=== PATIENT | male | born 1995 | race Caucasian/White ===

== ENCOUNTER 2017-09-04 22:26 | Observation (INO) | payer OTHER ==
[~2017-09-04] VITALS: Ht 188 cm; Wt 95.4 kg
--- OUTSIDE RECORDS SUMMARY | 2017-09-04 22:31 | XMS REPORT | Continuity of Care Document ---
Author Author [employer] Organization [employer] Address Unknown Phone Unavailable Care Team Providers Care Finish Patcher Name Role Phone [employer] Unavailable Unavailable Problems Problem Status Onset Date Classification Date Reported Comments Source Drug overdose (disorder) Diagnosis 02/18/2017 [facility] Poisoning by drug AND/OR medicinal substance (disorder) 01/31/2017 Diagnosis 02/04/2017 [facility] Intentional drug overdose (disorder) 01/31/2016 Diagnosis 02/04/2016 [facility] Intentional drug overdose (disorder) Active Problem 02/18 [facility] Drug overdose (disorder) Active Problem 02/18/2017 [facility] Medications Medication Details Route Status Patient Instructions Ordering Provider Order Date Source No Known Medications No known medications Active [facility] Allergies, Adverse Reactions, Alerts Immunizations Immunization Date Given Site Status Last Updated Comments Source influenza virus vaccine 02/14/2017 [facility] influenza virus vaccine [facility] influenza virus vaccine 01/31/2017 [facility] influenza virus vaccine<sup>1</sup > [place] Early/Late Reason: Nursing Judgment [facility] pneumococcal polysaccharide PPV23 01/31/2016 [facility] pneumococcal 23-valent vaccine [facility] influenza virus vaccine 01/31/2016 Right [facility]to[facility] influenza virus vaccine [facility] Results Vital Signs Encounters Location Location Details Encounter Type Encounter Number Reason For Visit Attending Provider ADM Date DC Date Status Source [facility] [id number] Emergency [id number] Jigar Stantonters 01/30/2016 01/30/2016 Active [facility] [id number] Inpatient [id number] Jerel Bartholomew 01/30/201603/2016 Active [facility] [id number] Inpatient [id number] Winnie Daniel 01/30/2017 01/31/2017 Active [facility], [facility]. [facility] [id number] Inpatient [id number] Terese Caraballo 02/14/2017 Active [facility], [facility]. Procedures Procedure Code Date Perfomer Comments Source No data available for this section [facility], [facility]. Plan of Care Social History Assessment and Plan Family History Value Date Source Advance Directives Order Name Results Value Date Source
--- OUTSIDE RECORDS SUMMARY | 2017-09-04 22:33 | XMS REPORT ---
Author [facility] Address Unknown Phone Unavailable Care Team Providers Care Steeler Name Role Phone No Family Physician, . PCP Unavailable Encounter [facility] [id number] Date(s): 02/14/17 - [facility]14/[facility] [address] [address] Discharge Disposition: Home Attending Physician: Terese Caraballo DO Admitting Physician: Terese Caraballo DO Referring Physician: No Family Physician, . Non-Staff Vital Signs No data available for this section Problem List Condition Effective Dates Status Health Status Informant Intentional drug Active overdose(Confirmed) Drug Active overdose(Confirmed) Diagnosis Diagnosis Type Effective Dates Health Status Clinical Service Informant Drug overdose Discharge 02/14/17 Non-Specified Diagnosis Allergies, Adverse Reactions, Alerts No Known Allergies Medications No Known Medications Results No data available for this section Immunizations Given and Recorded Vaccine Date Status Refusal Reason influenza virus vaccine 02/14/17 Given influenza virus vaccine1 01/31/17 Given influenza virus vaccine 01/31/16 Given pneumococcal 23-valent vaccine 01/31/16 Given 1Early/Late Reason: Nursing Judgment Procedures No data available for this section Social History No data available for this section Assessment and Plan No data available for this section
--- OUTSIDE RECORDS SUMMARY | 2017-09-04 22:33 | XMS REPORT ---
Author Author [facility] Organization [facility] Address Unknown Phone Unavailable Care Team Providers Care Certified Nursing Assistant Name Role Phone No Family Physician, . PCP Unavailable [facility]counter [facility] [id number] Date(s): 01/30/17 - 01/31/17 [facility] [employer] [facility] [address] [address] Discharge Disposition: Home Attending Physician: Winnie Daniel MD Admitting Physician: Winnie Daniel MD Referring Physician: No Family Physician, . Non-Staff Vital Signs No data available for this section Problem List Condition Effective Dates Status Health Status Informant Intentional drug Active overdose(Confirmed) Diagnosis Diagnosis Type Effective Dates Health Status Clinical Service Informant Drug intoxication Discharge 01/31/17 Non-Specified Diagnosis Allergies, Adverse Reactions, Alerts No Known Allergies Medications No Known Medications Results No data available for this section Immunizations Given and Recorded Vaccine Date Status Refusal Reason influenza virus vaccine1 01/31/17 Given influenza virus vaccine 01/31/16 Given pneumococcal 23-valent vaccine 01/31/16 Given 1Early/Late Reason: Nursing Judgment Procedures No data available for this section Social History No data available for this section Assessment and Plan No data available for this section
[2017-09-04 22:37] LABS: BASOPHILS % (AUTO) 0 % (0-10); EOSINOPHILS # (AUTO) 0.1 10^3/uL (0.0-0.3); EOSINOPHILS % (AUTO) 1 % (0-10); LYMPHOCYTES % (AUTO) 27 % (12-44); MEAN CORPUSCULAR HEMOGLOBIN 29 PG (25-34); MEAN CORPUSCULAR HGB CONC 35 G/DL (32-36); MEAN CORPUSCULAR VOLUME 82 FL (80-99); MEAN PLATELET VOLUME 9.5 FL (7.4-10.4); MONOCYTES # (AUTO) 0.7 X 10^3 (0.0-1.0); MONOCYTES % (AUTO) 9 % (0-12); NEUTROPHILS # (AUTO) 4.5 X 10^3 (1.8-7.8); NEUTROPHILS % (AUTO) 62 % (42-75); PLATELET COUNT 201 10^3/uL (130-400); RED BLOOD COUNT 4.79 10^6/uL (4.35-5.85); RED CELL DISTRIBUTION WIDTH 13.1 % (10.0-14.5); WHITE BLOOD COUNT 7.2 10^3/uL (4.3-11.0)
[2017-09-04 22:53] LABS: ALANINE AMINOTRANSFERASE 18 U/L (0-55); ALBUMIN 3.8 GM/DL (3.2-4.5); ALCOHOL < 10 MG/DL (<10); ANION GAP 7 MMOL/L (5-14); ASPARTATE AMINO TRANSFERASE 19 U/L (5-34); BILIRUBIN,TOTAL 0.5 MG/DL (0.1-1.0); BLOOD UREA NITROGEN 13 MG/DL (7-18); BUN/CREATININE RATIO 13; CALCIUM 8.5 MG/DL (8.5-10.1); CARBON DIOXIDE 26 MMOL/L (21-32); CHLORIDE 105 MMOL/L (98-107); CREATININE SERUM 0.99 MG/DL (0.60-1.30); GFR ESTIMATED > 60; GLUCOSE 103 MG/DL (70-105); POTASSIUM 3.6 MMOL/L (3.6-5.0); SALICYLATE < 5.0 MG/DL (5.0-20.0); SODIUM 138 MMOL/L (135-145); TOTAL PROTEIN 6.8 GM/DL (6.4-8.2)
[2017-09-04 22:55] LABS: ACETAMINOPHEN < 10 UG/ML (10-30)
--- NOTE | 2017-09-04 23:01 | ED Psychosocial ---
General Chief Complaint: Overdose Stated Complaint: OVERDOSE Nursing Triage Note: PT REPORTS TAKING 32 COLD & COUGH TABLETS APPROX. 1700. PT REPORTS CALLING EMS FEARING HE OVERDOSED. PT REPORTS WANTING HALLCINATIONS FROM MEDICATION. Source: patient Exam Limitations: no limitations History of Present Illness Time seen by provider: 22:25 Initial Comments Here with report of overdose on Coricidin HBP. Apparently to 32 tablets this evening between 5 and 9 p.m. he reports taking this because he wanted to be closer to God. He states that dextromethorphan will cause hallucinations and this will allow him to talk with God without being asleep. Later he realized that he may have taken too many and called EMS because he was concerned about the overdose. States this was not a suicide attempt. He states he has thought about it in the past but has never acted on it and this was not a suicide attempt. Does admit to depression and anxiety. He is on medicines for this and apparently sees [facility]. Denies overdosing on his mental health medicines. Timing/Duration: this evening Severity: moderate, severe Associated Symptoms: impaired concentration, ingestion Allergies and Home Medications Allergies Coded Allergies: No Known Drug Allergies (Unverified , 07/15/15) Home Medications No Active Prescriptions or Reported Meds Constitutional: see HPI, No chills, No fever EENTM: no symptoms reported Respiratory: no symptoms reported Cardiovascular: No chest pain, palpitations Gastrointestinal: No nausea, No vomiting Genitourinary: no symptoms reported Musculoskeletal: no symptoms reported Skin: change in color, No lesions Psychiatric/Neurological: Anxiety, Depressed, Emotional Problems, Tremors All Other Systems Reviewed Negative Unless Noted: Yes Past Sodqszv-Daxrfu-Yvhdil Hx Patient Social History Alcohol Use: Denies Use Recreational Drug Use: No Type Used: Cigarettes, Smokeless Tobacco Recent Foreign Travel: No Contact w/Someone Who Travel: No Recent Infectious Disease Expo: No Recent Hopitalizations: No Immunizations Up To Date Tetanus Booster (TDap): Unknown PED Vaccines UTD: Yes Seasonal Allergies Seasonal Allergies: No Surgeries History of Surgeries: Yes (DENTAL) Respiratory History of Respiratory Disorde: No Currently Using CPAP: No Currently Using BIPAP: No Cardiovascular History of Cardiac Disorders: No Neurological History of Neurological Disord: No Reproductive System Hx Reproductive Disorders: No Genitourinary History of Genitourinary Disor: No Gastrointestinal History of Gastrointestinal Di: No Musculoskeletal History of Musculoskeletal Dis: No Endocrine History of Endocrine Disorders: No HEENT History of HEENT Disorders: No Loss of Vision: Denies Hearing Impairment: Denies Cancer History of Cancer: No Psychosocial History of Psychiatric Problem: Yes Behavioral Health Disorders: Anxiety, Depression Integumentary History of Skin or Integumenta: No Blood Transfusions History of Blood Disorders: No Adverse Reaction to a Blood Tr: No Reviewed Nursing Assessment Reviewed/Agree w Nursing PMH: Yes Family Medical History Family Medial History: Arthritis 19 MOTHER (chronic back pain) Asthma Hypertension 19 FATHER Physical Exam Vital Signs Vital Sign - Last 12Hours 09/04/17 22:30 Temp 100.4 Pulse 131 Resp 20 B/P (MAP) 158/95 Pulse Ox 98 O2 Delivery Room Air Capillary Refill : Less Than 3 Seconds General Appearance: WD/WN, no apparent distress HEENT: pharynx normal, other (pupils dilated and sluggish to react bilaterally. ) Neck: full range of motion, supple Respiratory: lungs clear, normal breath sounds Cardiovascular: no murmur, tachycardia Gastrointestinal: non tender, soft Extremities: normal range of motion, non-tender, normal inspection Neurologic/Psychiatric: alert, normal mood/affect Appearance/Memory: appropriate appearance, impaired insight Behavior/Eye Contact: cooperative, good eye contact Thoughts/Hallucinations: no apparent hallucination, caodaism Skin: warm/dry, other (reddened skin overall.) Progress/Results/Core Measures Results/Orders Lab Results Laboratory Tests Test 09/04/17 21:25 09/04/17 23:10 Range/Units White Blood Count 7.2 4.3-11.0 10^3/uL Red Blood Count 4.79 4.35-5.85 10^6/uL Hemoglobin 13.9 13.3-17.7 G/DL Hematocrit 39 L 40-54 % Mean Corpuscular Volume 82 80-99 FL Mean Corpuscular Hemoglobin 29 25-34 PG Mean Corpuscular Hemoglobin Concent 35 32-36 G/DL Red Cell Distribution Width 13.1 10.0-14.5 % Platelet Count 201 130-400 10^3/uL Mean Platelet Volume 9.5 7.4-10.4 FL Neutrophils (%) (Auto) 62 42-75 % Lymphocytes (%) (Auto) 27 12-44 % Monocytes (%) (Auto) 9 0-12 % Eosinophils (%) (Auto) 1 0-10 % Basophils (%) (Auto) 0 0-10 % Neutrophils # (Auto) 4.5 1.8-7.8 X 10^3 Lymphocytes # (Auto) 2.0 1.0-4.0 X 10^3 Monocytes # (Auto) 0.7 0.0-1.0 X 10^3 Eosinophils # (Auto) 0.1 0.0-0.3 10^3/uL Basophils # (Auto) 0.0 0.0-0.1 10^3/uL Sodium Level 138 135-145 MMOL/L Potassium Level 3.6 3.6-5.0 MMOL/L Chloride Level 105 98-107 MMOL/L Carbon Dioxide Level 26 21-32 MMOL/L Anion Gap 7 5-14 MMOL/L Blood Urea Nitrogen 13 7-18 MG/DL Creatinine 0.99 0.60-1.30 MG/DL Estimat Glomerular Filtration Rate > 60 BUN/Creatinine Ratio 13 Glucose Level 103 70-105 MG/DL Calcium Level 8.5 8.5-10.1 MG/DL Total Bilirubin 0.5 0.1-1.0 MG/DL Aspartate Amino Transf (AST/SGOT) 19 5-34 U/L Alanine Aminotransferase (ALT/SGPT) 18 0-55 U/L Alkaline Phosphatase 50 40-136 U/L Total Protein 6.8 6.4-8.2 GM/DL Albumin 3.8 3.2-4.5 GM/DL Salicylates Level < 5.0 L 5.0-20.0 MG/DL Acetaminophen Level < 10 L 10-30 UG/ML Serum Alcohol < 10 <10 MG/DL Urine Color YELLOW Urine Clarity CLEAR Urine pH 6.5 5-9 Urine Specific [place] 1.010 L 1.016-1.022 Urine Protein NEGATIVE NEGATIVE Urine Glucose (UA) NEGATIVE NEGATIVE Urine Ketones NEGATIVE NEGATIVE Urine Nitrite NEGATIVE NEGATIVE Urine Bilirubin NEGATIVE NEGATIVE Urine Urobilinogen NORMAL NORMAL MG/DL Urine Leukocyte Esterase NEGATIVE NEGATIVE Urine RBC (Auto) NEGATIVE NEGATIVE Urine RBC NONE /HPF Urine WBC RARE /HPF Urine Crystals NONE /LPF Urine Bacteria NEGATIVE /HPF Urine Casts NONE /LPF Urine Mucus NEGATIVE /LPF Urine Culture Indicated NO Urine Opiates Screen NEGATIVE NEGATIVE Urine Oxycodone Screen NEGATIVE NEGATIVE Urine Methadone Screen NEGATIVE NEGATIVE Urine Propoxyphene Screen NEGATIVE NEGATIVE Urine Barbiturates Screen NEGATIVE NEGATIVE Ur Tricyclic Antidepressants Screen NEGATIVE NEGATIVE Urine Phencyclidine Screen NEGATIVE NEGATIVE Urine Amphetamines Screen NEGATIVE NEGATIVE Urine Methamphetamines Screen NEGATIVE NEGATIVE Urine Benzodiazepines Screen NEGATIVE NEGATIVE Urine Cocaine Screen NEGATIVE NEGATIVE Urine Cannabinoids Screen NEGATIVE NEGATIVE My Orders Orders - RENNY ANDERSON MD Ua Culture If Indicated (09/04/17 22:32) Cbc With Automated Diff (09/04/17 22:32) Comprehensive Metabolic Panel (09/04/17:32) Alcohol (09/04/17:32) Drug Screen Stat (Urine) (09/04/17:32) Acetaminophen (09/04/17:32) Salicylate (09/04/17 22:32) Ekg Tracing (09/04/17:) Saline Lock/Iv-Start (09/04/17) Monitor-Rhythm Ecg Trace Only (09/04/17:32) Vital Signs/I&O Vital Sign - Last 12Hours 09/04/17 22:30 Temp 100.4 Pulse 131 Resp 20 B/P (MAP) 158/95 Pulse Ox 98 O2 Delivery Room Air Intake and Output 09/05/17 00:00 Intake Total 800 ml Balance 800 ml Blood Pressure Mean: 116 Progress Note : Progress Note Seen and evaluated on arrival by EMS. IV established by EMS. 1 L normal saline bolus running currently. Heart rate 120s to 130s. Labs, EKG, UA, UDS and x-rays ordered. Poison control contacted and recommend supportive care with minimum 6 hour monitoring and repeat EKG in 4 hours. IV fluids and benzodiazepines as needed for symptom control and agitation respectively. Case was discussed with Dr. Lunsford and she accepts patient for admission observation status. Patient to go to ICU. 2325: Labs reviewed. Blood pressure 156/87. Patient to be admitted to ICU. Patient reports that his primary care physician is Dr. Gilbert. Admitted to her service. Dr. Lunsford has accepted as the on-call physician. Admit, observation status. Heart rate currently 115. ECG Initial ECG Impression Date: Sep 04, 2017 Initial ECG Impression Time: 22:30 Initial ECG Rate: 124 Initial ECG Rhythm: S.Tach Comment Sinus tachycardia with left atrial normality. Normal axis. No evidence of ST elevation AK. Normal QT interval. Similar to previous but increased rate. Interpreted by me. Interpreted by me. Departure Communication (Admissions) Time/Spoke to Admitting Phy: 22:35 Impression Impression: Primary Impression: Drug overdose Qualified Codes: T50.904A - Poisoning by unspecified drugs, medicaments and biological substances, undetermined, initial encounter Disposition: ADMITTED INPATIENT Condition: Stable Admissions Decision to Admit Reason: Admit from ER (General) Decision to Admit/Date: Sep 04, 2017 Time/Decision to Admit Time: 22:35 Departure-Patient Inst. Referrals: GERARDO GILBERT DO (PCP/Family) Primary Care Physician Patient Instructions: ALCOHOL AND SUBSTANCE ABUSE Scripts No Active Prescriptions or Reported Meds RENNY ANDERSON MD Sep 04, 2017 23:01
[2017-09-04 23:16] LABS: BILIRUBIN,URINE NEGATIVE (NEGATIVE); KETONES,URINE NEGATIVE (NEGATIVE); LEUKOCYTE ESTERASE ,URINE NEGATIVE (NEGATIVE); NITRITE,URINE NEGATIVE (NEGATIVE); PH,URINE 6.5 (5-9); PROTEIN,URINE NEGATIVE (NEGATIVE); UROBILINOGEN,URINE NORMAL (NORMAL)
[2017-09-04 23:23] LABS: WBC,URINE RARE /HPF
--- OUTSIDE RECORDS SUMMARY | 2017-09-04 23:36 | XMS REPORT | Continuity of Care Document ---
Author Author [employer] Organization [employer] Address Unknown Phone Unavailable Care Team Providers Care Director Bioinformatics Name Role Phone [employer] Unavailable Unavailable Problems Problem Status Onset Date Classification Date Reported Comments Source Drug overdose (disorder) Diagnosis 02/18/2017 [facility] Poisoning by drug AND/OR medicinal substance (disorder) 01/31/2017 Diagnosis 02/04/2017 [facility] Intentional drug overdose (disorder) 01/31/2016 Diagnosis 02/04/2016 [facility] Intentional drug overdose (disorder) Active Problem 02/18 [facility] Drug overdose (disorder) Active Problem 02/18/2017 [facility] Medications Medication Details Route Status Patient Instructions Ordering Provider Order Date Source No Known Medications No known medications Active [facility] Allergies, Adverse Reactions, Alerts Immunizations Immunization Date Given Site Status Last Updated Comments Source influenza virus vaccine 02/14/2017 [facility] influenza virus vaccine [facility] influenza virus vaccine 01/31/2017 Right Deltoid influenza virus vaccine<sup>1</sup > [place] Early/Late Reason: Nursing Judgment [facility] pneumococcal polysaccharide PPV23 01/31/2016 Right Deltoid pneumococcal 23-valent vaccine [facility] influenza virus vaccine 01/31/2016 Right Deltoid influenza virus vaccine [facility] Results Vital Signs Encounters Location Location Details Encounter Type Encounter Number Reason For Visit Attending Provider ADM Date DC Date Status Source [facility] [id number] Emergency [id number] Jigar Stantonters 01/30/2016 01/30/2016 Active [facility] [id number] Inpatient [id number] Jerel Bartholomew 01/30/201603/[address] [facility] [id number] Inpatient [id number] Winnie Daniel 01/30/2017 01/31/2017 Active [facility], [facility]. [facility] [id number] Inpatient [id number] Terese Caraballo 02/14/2017 Active [facility], [facility]. Procedures Procedure Code Date Perfomer Comments Source No data available for this section [facility], [facility]. Plan of Care Social History Assessment and Plan Family History Value Date Source Advance Directives Order Name Results Value Date Source
[2017-09-04 23:50] VITALS: BP 128/107
[2017-09-05] VITALS (18 sets, daily range): BP systolic 107–141; BP diastolic 44–104
[2017-09-05] MEDS ORDERED: NS IV 1000 ML 1,000 ML ONE (00:11)
[2017-09-05] MEDS ORDERED: LORazepam INJ 2 MG/ML (ATIVAN) VIAL IV PRN (01:15)
[2017-09-05] MEDS ORDERED: ONDANSETRON 4 MG/2 ML (SDV) Z0FRAN IV PRN (01:15)
[2017-09-05] MEDS: NS IV 1000 ML 1,000 ML IV SCH ×4 (01:24→19:46)
[2017-09-05 04:42] LABS: BASOPHILS % (AUTO) 1 % (0-10); EOSINOPHILS # (AUTO) 0.1 10^3/uL (0.0-0.3); EOSINOPHILS % (AUTO) 2 % (0-10); LYMPHOCYTES # (AUTO) 2.2 X 10^3 (1.0-4.0); LYMPHOCYTES % (AUTO) 34 % (12-44); MEAN CORPUSCULAR HEMOGLOBIN 29 PG (25-34); MEAN CORPUSCULAR HGB CONC 34 G/DL (32-36); MEAN CORPUSCULAR VOLUME 83 FL (80-99); MEAN PLATELET VOLUME 10.1 FL (7.4-10.4); MONOCYTES # (AUTO) 0.7 X 10^3 (0.0-1.0); MONOCYTES % (AUTO) 10 % (0-12); NEUTROPHILS # (AUTO) 3.5 X 10^3 (1.8-7.8); NEUTROPHILS % (AUTO) 53 % (42-75); PLATELET COUNT 192 10^3/uL (130-400); RED BLOOD COUNT 4.79 10^6/uL (4.35-5.85); RED CELL DISTRIBUTION WIDTH 13.3 % (10.0-14.5); WHITE BLOOD COUNT 6.5 10^3/uL (4.3-11.0)
[2017-09-05 05:04] LABS: ALANINE AMINOTRANSFERASE 17 U/L (0-55); ALBUMIN 3.7 GM/DL (3.2-4.5); ANION GAP 8 MMOL/L (5-14); ASPARTATE AMINO TRANSFERASE 19 U/L (5-34); BILIRUBIN,TOTAL 0.5 MG/DL (0.1-1.0); BLOOD UREA NITROGEN 12 MG/DL (7-18); BUN/CREATININE RATIO 13; CALCIUM 8.3 MG/DL (8.5-10.1); CARBON DIOXIDE 24 MMOL/L (21-32); CHLORIDE 106 MMOL/L (98-107); CREATININE SERUM 0.93 MG/DL (0.60-1.30); GFR ESTIMATED > 60; GLUCOSE 93 MG/DL (70-105); POTASSIUM 3.6 MMOL/L (3.6-5.0); SODIUM 138 MMOL/L (135-145); TOTAL PROTEIN 6.6 GM/DL (6.4-8.2)
[2017-09-05] MEDS ORDERED: INFLUENZA TRIvalent 2017-2018 0.5 ML/45 MCG SYR IM ONE (07:00)
--- NOTE | 2017-09-05 19:49 | History & Physicial ---
History of Present Illness History of Present Illness Reason for visit/HPI This is a 22 year old male who I have not seen in my office in almost 5 years. He apparently has been seeing [facility] for depression and anxiety and a history of drug abuse. He took approximately 32 Coricidin HBP to have hallucinations but then became frightened that he could overdose so called EMS. 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 He denies suicidal ideation at this time, but is willing to go back to a treatment center. He currently lives with his mother and is unemployed and not attending school. Date of Admission Sep 04, 2017 at 11:50 pm Date Seen by Provider: Sep 05, 2017 Time Seen by Provider: 12:45 I consulted on this patient on 09/05/17 19:43 Attending Physician Bambi Bustos DO Admitting Physician Bambi Bustos DO Consult Allergies and Home Medications Allergies Coded Allergies: No Known Drug Allergies (Unverified , 07/15/15) Home Medications No Active Prescriptions or Reported Meds Past Jolwqap-Qblvnj-Zrhwgp Hx Patient Social History Alcohol Use: Denies Use Recreational Drug Use: No Smoking Status: Current Everyday Smoker Type Used: Cigarettes Physical Abuse Screen: No Sexual Abuse: No Recent Foreign Travel: No Contact w/other who traveled: No Recent Hopitalizations: No Recent Infectious Disease Expo: No Immunizations Up To Date Tetanus Booster (TDap): Unknown Pediatric: Yes Seasonal Allergies Seasonal Allergies: No Surgeries Yes (DENTAL) Respiratory No Currently Using CPAP: No Currently Using BIPAP: No Cardiovascular No Neurological No Reproductive System Hx Reproductive Disorders: No Sexually Transmitted Disease: No HIV/AIDS: No Genitourinary No Gastrointestinal No Musculoskeletal No Endocrine History of Endocrine Disorders: No HEENT History of HEENT Disorders: No Loss of Vision: Denies Hearing Impairment: Denies Cancer No Psychosocial History of Psychiatric Problem: Yes Behavioral Health Disorders: Anxiety, Depression Integumentary History of Skin or Integumenta: No Blood Transfusions History of Blood Disorders: No Adverse Reaction to a Blood Tr: No Reviewed Nursing Assessment Reviewed/Agree w Nursing PMH: Yes Family Medical History Family Hx: Arthritis 19 MOTHER (chronic back pain) Asthma Hypertension 19 FATHER Constitutional: No no symptoms reported, No see HPI, No chills, No diaphoresis , No dizziness, No fever, No malaise, No weakness, No weight gain, No weight loss, No other EENTM: No see HPI, No no symptoms reported, No ear discharge, No hearing loss, No ear pain, No blurred vision, No double vision, No eye pain, No tearing, No vision loss, No dental problems, No hoarseness, No mouth pain, No mouth swelling , No epistaxis, No nose congestion, No nose pain, No throat pain, No throat swelling, No other Respiratory: No no symptoms reported, No see HPI, No cough, No dyspnea on exertion, No hemoptysis, No orthopnea, No phlegm, No short of breath, No stridor , No wheezing, No other Cardiovascular: No no symptoms reported, No see HPI, No chest pain, No edema, No Hx of Intervention, No palpitations, No syncope, No vascular heart diseas, No other Gastrointestinal: No RUQ, No LUQ, No RLQ, No LLQ, No no symptoms reported, No see HPI, No abdominal pain, No constipation, No diarrhea, No dysphagia, No hematemesis, No heartburn, No jaundice, No loss of appetite, No melena, No nausea, No vomiting, No other Genitourinary: No no symptoms reported, No see HPI, No decreased output, No discharge, No dysuria, No frequency, No hematuria, No hesitancy, No incontinence , No nocturia, No pain, No other Musculoskeletal: No no symptoms reported, No see HPI, No back pain, No gout, No joint pain, No joint swelling, No muscle pain, No muscle stiffness, No muscle cramps, No muscle twitching, No muscle weakness, No neck pain, No other Skin: No no symptoms reported, No see HPI, No change in color, No change in hair/nails, No dryness, No hx of skin cancer, No lesions, No lumps, No pruritus , No rash, No other Psychiatric/Neurological: Anxiety, Depressed Physical Exam Vital Signs Vital Sign - Last 12Hours 09/04/17 22:30 Temp 100.4 Pulse 131 Resp 20 B/P (MAP) 158/95 Pulse Ox 98 O2 Delivery Room Air Capillary Refill : Less Than 3 Seconds General Appearance: No Apparent Distress HEENT: Pharynx Normal Neck: Supple Respiratory: Lungs Clear Cardiovascular: Regular Rate, Rhythm Gastrointestinal: Normal Bowel Sounds, Non Tender, Soft Rectal: Deferred Back: No CVA Tenderness Extremity: Non Tender, No Calf Tenderness, No Pedal Edema Neurologic/Psychiatric: Alert, Oriented x3 Skin: Normal Color, Warm/Dry Lymphatic: No Adenopathy Comments Laboratory Tests 09/04/17 21:25: White Blood Count 7.2, Red Blood Count 4.79, Hemoglobin 13.9, Hematocrit 39L, Mean Corpuscular Volume 82, Mean Corpuscular Hemoglobin 29, Mean Corpuscular Hemoglobin Concent 35, Red Cell Distribution Width 13.1, Platelet Count 201, Mean Platelet Volume 9.5, Neutrophils (%) (Auto) 62, Lymphocytes (%) (Auto) 27, Monocytes (%) (Auto) 9, Eosinophils (%) (Auto) 1, Basophils (%) (Auto) 0, Neutrophils # (Auto) 4.5, Lymphocytes # (Auto) 2.0, Monocytes # (Auto) 0.7, Eosinophils # (Auto) 0.1, Basophils # (Auto) 0.0, Sodium Level 138, Potassium Level 3.6, Chloride Level 105, Carbon Dioxide Level 26, Anion Gap 7, Blood Urea Nitrogen 13, Creatinine 0.99, Estimat Glomerular Filtration Rate > 60, BUN/ Creatinine Ratio 13, Glucose Level 103, Calcium Level 8.5, Total Bilirubin 0.5, Aspartate Amino Transf (AST/SGOT) 19, Alanine Aminotransferase (ALT/SGPT) 18, Alkaline Phosphatase 50, Total Protein 6.8, Albumin 3.8, Salicylates Level < 5.0L, Acetaminophen Level < 10L, Serum Alcohol < 10 09/04/17 23:10: Urine Color YELLOW, Urine Clarity CLEAR, Urine pH 6.5, Urine Specific [place] 1.010L, Urine Protein NEGATIVE, Urine Glucose (UA) NEGATIVE, Urine Ketones NEGATIVE, Urine Nitrite NEGATIVE, Urine Bilirubin NEGATIVE, Urine Urobilinogen NORMAL, Urine Leukocyte Esterase NEGATIVE, Urine RBC (Auto) NEGATIVE, Urine RBC NONE, Urine WBC RARE, Urine Crystals NONE, Urine Bacteria NEGATIVE, Urine Casts NONE, Urine Mucus NEGATIVE, Urine Culture Indicated NO, Urine Opiates Screen NEGATIVE, Urine Oxycodone Screen NEGATIVE, Urine Methadone Screen NEGATIVE, Urine Propoxyphene Screen NEGATIVE, Urine Barbiturates Screen NEGATIVE, Ur Tricyclic Antidepressants Screen NEGATIVE, Urine Phencyclidine Screen NEGATIVE, Urine Amphetamines Screen NEGATIVE, Urine Methamphetamines Screen NEGATIVE, Urine Benzodiazepines Screen NEGATIVE, Urine Cocaine Screen NEGATIVE, Urine Cannabinoids Screen NEGATIVE 09/05/17 04:00: White Blood Count 6.5, Red Blood Count 4.79, Hemoglobin 13.7, Hematocrit 40, Mean Corpuscular Volume 83, Mean Corpuscular Hemoglobin 29, Mean Corpuscular Hemoglobin Concent 34, Red Cell Distribution Width 13.3, Platelet Count 192, Mean Platelet Volume 10.1, Neutrophils (%) (Auto) 53, Lymphocytes (%) (Auto) 34 , Monocytes (%) (Auto) 10, Eosinophils (%) (Auto) 2, Basophils (%) (Auto) 1, Neutrophils # (Auto) 3.5, Lymphocytes # (Auto) 2.2, Monocytes # (Auto) 0.7, Eosinophils # (Auto) 0.1, Basophils # (Auto) 0.0, Sodium Level 138, Potassium Level 3.6, Chloride Level 106, Carbon Dioxide Level 24, Anion Gap 8, Blood Urea Nitrogen 12, Creatinine 0.93, Estimat Glomerular Filtration Rate > 60, BUN/ Creatinine Ratio 13, Glucose Level 93, Calcium Level 8.3L, Total Bilirubin 0.5, Aspartate Amino Transf (AST/SGOT) 19, Alanine Aminotransferase (ALT/SGPT) 17, Alkaline Phosphatase 47, Total Protein 6.6, Albumin 3.7 Assessment/Plan Assessment and Plan 1. Drug Overdose--Hydrate and monitor on telemetry, social worker palliative care consult 2. Anxiety/Depression--Sees [facility] Mental Health Problems: Clinical Quality Measures DVT/VTE Risk/Contraindication: Risk Factor Score Per Nursin RFS Level Per Nursing on Admit: 1=Low/No VTE PPX BAMBI BUSTOS DO Sep 05, 2017 7:49 pm
[2017-09-06] VITALS (10 sets, daily range): BP systolic 96–145; BP diastolic 56–75
[2017-09-06] MEDS: NS IV 1000 ML 1,000 ML IV SCH (02:51)
--- NOTE | 2017-09-06 22:01 | Discharge Summary ---
Diagnosis/Chief Complaint Date of Admission Sep 04, 2017 at 11:50 pm Date of Discharge Sep 06, 2017 at 10:55 am Discharge Date: Sep 06, 2017 Admission Diagnosis Admission Diagnosis 1. Drug Overdose--Hydrate and monitor on telemetry, social psychologist consult 2. Anxiety/Depression--Sees [facility] Discharge Diagnosis 1. Drug Overdose of Coricidin HPB--stable with no evidence of prolonged QT interval or arrhythmias 2. Depression/Anxiety Reason Hospital Visit This is a 22 year old male who I have not seen in my office in almost 5 years. He apparently has been seeing [facility] for depression and anxiety and a history of drug abuse. He took approximately 32 Coricidin HBP to have hallucinations but then became frightened that he could overdose so called EMS. 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 He denies suicidal ideation at this time, but is willing to go back to a treatment center. He currently lives with his mother and is unemployed and not attending school. Discharge Summary Hospital Course Hospital Course is a 22 year old male who I have not seen in my office in almost 5 years. He apparently has been seeing [facility] for depression and anxiety and a history of drug abuse. He took approximately 32 Coricidin HBP to have hallucinations but then became frightened that he could overdose so called EMS. 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 He denies suicidal ideation at this time, but is willing to go back to a treatment center. He currently lives with his mother and is unemployed and not attending school. He was admitted to the ICU and given aggressive IVF and monitored on telemetry as well as with serial EKGs to monitor for arrhythmias or prolonged QT interval. His heart rate and EKG remained stable and on the second day of hospital stay he was stable for discharge. The patient willingly wanted to go to an inpatient holistic treatment center--[facility]--that he had attended before in [facility]. They did have a bed available for the patient at [facility] which was confirmed by social psychologist, and appointments were also scheduled for followup at [facility] were the patient also receives services. Labs Laboratory Tests 09/04/17 21:25: Hematocrit 39L, Salicylates Level < 5.0L, Acetaminophen Level < 10L 09/04/17 23:10: Urine Specific [place] 1.010L 09/05/17 04:00: Calcium Level 8.3L Procedures None. Discharge Physical Examination Allergies: Coded Allergies: No Known Drug Allergies (Unverified , 07/15/15) Vitals & I&Os Vital Signs Date Time Temp Pulse Resp B/P (MAP) Pulse Ox O2 Delivery O2 Flow Rate FiO2 09/06/17 10:55 09/06/17 09:17 97.1 09/06/17 09:00 90 22 97 Room Air General Appearance: Alert, Oriented X3, Cooperative, No Acute Distress Respiratory: Clear to Auscultation Cardiovascular: Regular Rate Abdominal: Normal Bowel Sounds, Soft, No Tenderness Extremities: No Clubbing, No Cyanosis, No Edema Skin: No Rashes Neuro: Normal Speech Psych/Mental Status: Mental Status NL, Mood NL Discharge Home Medications Reviewed and agree with Discharge Medication list on patient's Discharge Instruction sheet Instructions to Patient/Family Please see electronic discharge instructions given to patient. Clinical Quality Measures DVT/VTE Risk/Contraindication: Risk Factor Score Per Nursin RFS Level Per Nursing on Admit: 1=Low/No VTE PPX GERARDO GILBERT DO Sep 06, 2017 10:01 pm
== END 2017-09-06 10:42 | disposition home or self-care (01) ==
LOC: EDUNIT# 22:26 → ER 22:27 → ICU 23:25 → UNDOADMOB 23:25 → ICU 23:50
PROVIDERS: ADMIT Internal Medicine; ATTEND Family Medicine
DX: T48.3X2A Poisoning by antitussives, intentional self-harm, initial encounter (principal); R33.9 Retention of urine, unspecified; R41.9 Unspecified symptoms and signs involving cognitive functions and awareness; F17.210 Nicotine dependence, cigarettes, uncomplicated
CPT/HCPCS: 36415; 80053; 80306; 80320; 80329; 81000; 85025; 87081; 93005; 93041; G0378

== ENCOUNTER 2019-08-10 11:39 | Observation (INO) | payer OTHER ==
[2019-08-10] VITALS (12 sets, daily range): BP systolic 91–138; BP diastolic 53–90
[~2019-08-10] VITALS: Ht 190 cm; Wt 86.6 kg
[2019-08-10] MEDS ORDERED: NS IV 1000 ML 1,000 ML IV SCH (11:45)
[2019-08-10 11:51] LABS: BASOPHILS % (AUTO) 0 % (0-10); EOSINOPHILS # (AUTO) 0.1 10^3/uL (0.0-0.3); EOSINOPHILS % (AUTO) 1 % (0-10); HEMATOCRIT 43 % (40-54); HEMOGLOBIN 15.2 G/DL (13.3-17.7); LYMPHOCYTES # (AUTO) 1.3 X 10^3 (1.0-4.0); LYMPHOCYTES % (AUTO) 12 % (12-44); MEAN CORPUSCULAR HEMOGLOBIN 30 PG (25-34); MEAN CORPUSCULAR HGB CONC 36 G/DL (32-36); MEAN CORPUSCULAR VOLUME 84 FL (80-99); MEAN PLATELET VOLUME 9.4 FL (7.4-10.4); MONOCYTES # (AUTO) 0.6 X 10^3 (0.0-1.0); MONOCYTES % (AUTO) 6 % (0-12); NEUTROPHILS # (AUTO) 8.2 X 10^3 (1.8-7.8); NEUTROPHILS % (AUTO) 81 % (42-75); PLATELET COUNT 192 10^3/uL (130-400); RED CELL DISTRIBUTION WIDTH 12.6 % (10.0-14.5); WHITE BLOOD COUNT 10.2 10^3/uL (4.3-11.0)
--- NOTE | 2019-08-10 11:55 | ED Psychosocial ---
General Chief Complaint: Substance Abuse Stated Complaint: CONFUSED Source: patient, EMS Exam Limitations: no limitations History of Present Illness Date Seen by Provider: Aug 10, 2019 Time Seen by Provider: 11:52 Initial Comments ER by EMS from the parking lot at [facility] where he was found laying on the ground by a passerby. He is not at [employer] student, informed EMS he was there looking for a girlfriend. At some point this morning he took 2 boxes of Coricidin HBP. He states he did not want to hurt himself, "I just wanted to get high". He was noted by EMS to be diaphoretic confused tachycardic. Timing/Duration: constant Severity: moderate Allergies and Home Medications Allergies Coded Allergies: No Known Drug Allergies (Unverified , 07/15/15) Home Medications No Active Prescriptions or Reported Meds Patient Home Medication List Home Medication List Reviewed: Yes Review of Systems Constitutional: see HPI EENTM: see HPI Genitourinary: no symptoms reported Musculoskeletal: no symptoms reported Skin: no symptoms reported Psychiatric/Neurological: See HPI Past Ifzvnjk-Wnvmis-Ymiflb Hx Patient Social History Type Used: Cigarettes Recent Foreign Travel: No Contact w/Someone Who Travel: No Recent Hopitalizations: No Immunizations Up To Date Tetanus Booster (TDap): Unknown PED Vaccines UTD: Yes Seasonal Allergies Seasonal Allergies: No Past Medical History Surgeries: Yes (DENTAL) Respiratory: No Currently Using CPAP: No Currently Using BIPAP: No Cardiac: No Neurological: No Reproductive Disorders: No Sexually Transmitted Disease: No HIV/AIDS: No Genitourinary: No Gastrointestinal: No Musculoskeletal: No Endocrine: No HEENT: No Loss of Vision: Denies Hearing Impairment: Denies Cancer: No Psychosocial: Yes Anxiety, Depression Integumentary: No Blood Disorders: No Adverse Reaction/Blood Tranf: No Family Medical History Arthritis 19 MOTHER (chronic back pain) Asthma Hypertension 19 FATHER Physical Exam Capillary Refill : Height, Weight, BMI Height: 6'2.00" Weight: 210lbs. 4.0oz. 95.528757wf; 26.8 BMI Method:Stated General Appearance: WD/WN, other (diaphoretic. Alert looking around the room, answers questions but doesn't know the answer oftentimes and will reply with "um" and then stare off into space. Tachycardic at 120 sinus, blood pressure 144/87, oxygen 95% room air, respiratory rate 24.) HEENT: normal ENT inspection, TMs normal Neck: non-tender, full range of motion Respiratory: no respiratory distress, no accessory muscle use Cardiovascular: tachycardia Gastrointestinal: normal bowel sounds, non tender, soft Extremities: normal range of motion, non-tender Neurologic/Psychiatric: alert, normal mood/affect, oriented x 3 Appearance/Memory: appropriate appearance, appropriate insight, neat (well- dressed) Skin: normal color, diaphoresis, damp Progress/Results/Core Measures Results/Orders Lab Results Laboratory Tests Test 08/10/19 11:45 Range/Units White Blood Count 10.2 4.3-11.0 10^3/uL Red Blood Count 5.06 4.35-5.85 10^6/uL Hemoglobin 15.2 13.3-17.7 G/DL Hematocrit 43 40-54 % Mean Corpuscular Volume 84 80-99 FL Mean Corpuscular Hemoglobin 30 25-34 PG Mean Corpuscular Hemoglobin Concent 36 32-36 G/DL Red Cell Distribution Width 12.6 10.0-14.5 % Platelet Count 192 130-400 10^3/uL Mean Platelet Volume 9.4 7.4-10.4 FL Neutrophils (%) (Auto) 81 H 42-75 % Lymphocytes (%) (Auto) 12 12-44 % Monocytes (%) (Auto) 6 0-12 % Eosinophils (%) (Auto) 1 0-10 % Basophils (%) (Auto) 0 0-10 % Neutrophils # (Auto) 8.2 H 1.8-7.8 X 10^3 Lymphocytes # (Auto) 1.3 1.0-4.0 X 10^3 Monocytes # (Auto) 0.6 0.0-1.0 X 10^3 Eosinophils # (Auto) 0.1 0.0-0.3 10^3/uL Basophils # (Auto) 0.0 0.0-0.1 10^3/uL Sodium Level 135 135-145 MMOL/L Potassium Level 3.9 3.6-5.0 MMOL/L Chloride Level 103 98-107 MMOL/L Carbon Dioxide Level 21 21-32 MMOL/L Anion Gap 11 5-14 MMOL/L Blood Urea Nitrogen 17 7-18 MG/DL Creatinine 1.14 0.60-1.30 MG/DL Estimat Glomerular Filtration Rate > 60 BUN/Creatinine Ratio 15 Glucose Level 111 H 70-105 MG/DL Calcium Level 9.1 8.5-10.1 MG/DL Corrected Calcium 8.9 8.5-10.1 MG/DL Total Bilirubin 0.6 0.1-1.0 MG/DL Aspartate Amino Transf (AST/SGOT) 22 5-34 U/L Alanine Aminotransferase (ALT/SGPT) 23 0-55 U/L Alkaline Phosphatase 48 40-136 U/L Total Protein 7.1 6.4-8.2 GM/DL Albumin 4.2 3.2-4.5 GM/DL Salicylates Level < 5.0 L 5.0-20.0 MG/DL Acetaminophen Level < 10 L 10-30 UG/ML Serum Alcohol < 10 <10 MG/DL My Orders Orders - SANTIAGO CAM APRN Cbc With Automated Diff (08/10/19 11:44) Comprehensive Metabolic Panel (08/10/19 11:44) Ua Culture If Indicated (08/10/19 11:44) Drug Screen Stat (Urine) (08/10/19 11:44) Ekg Tracing (08/10/19 11:44) Continuous Ekg Monitoring (08/10/19 11:44) Acetaminophen (08/10/19 11:44) Salicylate (08/10/19 11:44) Alcohol (08/10/19 11:44) Ns Iv 1000 Ml (Sodium Chloride 0.9%) (08/10/19 11:45) Lorazepam Injection (Ativan Injection) (08/10/19 12:30) Medications Given in ED Current Medications Medications Dose Ordered Sig/Cornelia Route Start Time Stop Time Status Last Admin Dose Admin Lorazepam 1 mg ONCE ONCE IVP 08/10/19 12:30 08/10/19 12:31 DC 08/10/19 12:34 1 MG Departure Communication (Admissions) Time/Spoke to Admitting Phy: 13:[address] Lunsford who agrees to admit observation status With poison control, Common symptoms with this or nystagmus, etc. debility, tachycardia, hypertension If a severe overdose, they can develop psychosis or seizures. Treatment is benzodiazepines for agitation, IV fluids, symptomatic and supportive care, observe for 4-6 hours or if this was extended release version should be observed 8-12 hours. Communication (PCP) 1303-he was restless for a bit here, given 1 mg of Ativan about an hour ago. Currently he is no longer diaphoretic, heart rate still 121, oxygen 94% room air, blood pressure 120/73, respiratory rate 22. He is sitting up in bed alert cooperative pleasant. Verbal responses are still a bit delayed to questions. Impression Primary Impression: Intentional non-suicidal overdose involving multiple drugs Qualified Codes: T50.902A - Poisoning by unspecified drugs, medicaments and biological substances, intentional self-harm, initial encounter Disposition: ADMITTED INPATIENT Condition: Stable Admissions Decision to Admit Reason: Admit from ER (General) Decision to Admit/Date: Aug 10, 2019 Time/Decision to Admit Time: 13:02 Departure-Patient Inst. Referrals: GERARDO GILBERT DO (PCP/Family) Primary Care Physician Patient Instructions: ALCOHOL AND SUBSTANCE ABUSE Scripts No Active Prescriptions or Reported Meds SANTIAGO CAM APRN Aug 10, 2019 11:55
[2019-08-10 12:17] LABS: ALANINE AMINOTRANSFERASE 23 U/L (0-55); ALBUMIN 4.2 GM/DL (3.2-4.5); ALKALINE PHOSPHATASE 48 U/L (40-136); BILIRUBIN,TOTAL 0.6 MG/DL (0.1-1.0); BUN/CREATININE RATIO 15; CALCIUM 9.1 MG/DL (8.5-10.1); CARBON DIOXIDE 21 MMOL/L (21-32); CHLORIDE 103 MMOL/L (98-107); CREATININE SERUM 1.14 MG/DL (0.60-1.30); GFR ESTIMATED > 60; GLUCOSE 111 MG/DL (70-105); POTASSIUM 3.9 MMOL/L (3.6-5.0); SALICYLATE < 5.0 MG/DL (5.0-20.0); SODIUM 135 MMOL/L (135-145); TOTAL PROTEIN 7.1 GM/DL (6.4-8.2)
[2019-08-10 12:24] LABS: ACETAMINOPHEN < 10 UG/ML (10-30)
[2019-08-10] MEDS ORDERED: LORazepam INJ 2 MG/ML (ATIVAN) VIAL IVP ONE (12:30)
--- NOTE | 2019-08-10 12:40 | NUR ---
PT CONT TO BE ANXIOUS AND SWEATING
[2019-08-10 14:28] LABS: BILIRUBIN,URINE NEGATIVE (NEGATIVE); CLARITY,URINE CLEAR; COLOR,URINE YELLOW; GLUCOSE, URINE (UA) NEGATIVE (NEGATIVE); KETONES,URINE NEGATIVE (NEGATIVE); LEUKOCYTE ESTERASE ,URINE NEGATIVE (NEGATIVE); NITRITE,URINE NEGATIVE (NEGATIVE); PROTEIN,URINE NEGATIVE (NEGATIVE); UROBILINOGEN,URINE NORMAL (NORMAL)
[2019-08-10 14:32] LABS: PH,URINE 5 (5-9)
[2019-08-10 14:44] LABS: BACTERIA,URINE NEGATIVE /HPF
[2019-08-10] MEDS ORDERED: CATHETER FLUSH 10 ML SYR IV PRN (14:45)
[2019-08-10] MEDS ORDERED: LORazepam INJ 2 MG/ML (ATIVAN) VIAL IV PRN (14:45)
[2019-08-10 14:51] LABS: AMPHETAMINE SCREEN, URINE NEGATIVE (NEGATIVE); BARBITURATE SCREEN URINE NEGATIVE (NEGATIVE); BENZODIAZEPINES SCREEN URINE NEGATIVE (NEGATIVE); CANNABINOID SCREEN, URINE NEGATIVE (NEGATIVE); COCAINE SCREEN URINE NEGATIVE (NEGATIVE); METHADONE STAT NEGATIVE (NEGATIVE); METHAMPHETAMINE SCREEN URINE S NEGATIVE (NEGATIVE); OPIATE SCREEN URINE NEGATIVE (NEGATIVE); OXYCODONE STAT NEGATIVE (NEGATIVE); PROPOXYPHENE STAT NEGATIVE (NEGATIVE); TRICYCLIC ANTIDEPRESSANTS SCRE NEGATIVE (NEGATIVE)
[2019-08-10] MEDS: LACTATED RINGERS 1,000 ML IV SCH ×2 (15:56→22:22)
--- NOTE | 2019-08-10 16:17 | History & Physical-Hospitalist ---
History of Present Illness HPI/Chief Complaint This is a 24-year-old white male who was found over [facility] in the parking lot laying down and confused. At the time of my interview here at [facility] he is eating a cheeseburger and is alert and oriented. He is currently requesting inpatient treatment for addiction. His stepfather says that he's been in several different treatment programs and just recently came back to town. The patient says that he is been using [id number] cough syrups and medications to try and get high. He denies having any suicidal ideation but would like to pursue treatment. The stepfather notes that he's currently been living in a shelter house. Source: patient, family Exam Limitations: no limitations Date Seen 08/10/19 Time Seen by a Provider: 16:00 Attending Physician Tabitha Lunsford MD PCP Bambi Bustos DO Referring Physician Date of Admission Aug 10, 2019 at 13:07 Home Medications & Allergies Home Medications Reviewed patient Home Medication Reconciliation performed by pharmacy medication reconciliations satellite installation technician and/or nursing. Patients Allergies have been reviewed. Allergies Allergies Coded Allergies No Known Drug Allergies (Unverified07/15/15) Past Lapspaf-Vbglck-Edagve Hx Past Med/Social Hx: Reviewed Nursing Past Med/Soc Hx Patient Social History Marrital Status: single Employed/Student: employed (as a [employer]) Alcohol Use: Occasionally Uses Recreational Drug Use: Yes Smoking Status: Never a Smoker Type Used: Cigarettes Recent Foreign Travel: No Contact w/other who traveled: No Recent Hopitalizations: No Recent Infectious Disease Expo: No Immunizations Up To Date Tetanus Booster (TDap): Unknown Pediatric: Yes Seasonal Allergies Seasonal Allergies: No Past Medical History Currently Using CPAP: No Currently Using BIPAP: No Reproductive: No Sexually Transmitted Disease: No HIV/AIDS: No Loss of Vision: Denies Hearing Impairment: Denies Psychosocial: Anxiety, Depression History of Blood Disorders: No Adverse Reaction to Blood Edouard: No Family History Arthritis 19 MOTHER (chronic back pain) Asthma Hypertension 19 FATHER Review of Systems Constitutional: see HPI EENTM: no symptoms reported Respiratory: no symptoms reported Cardiovascular: no symptoms reported Gastrointestinal: no symptoms reported Genitourinary: no symptoms reported Musculoskeletal: no symptoms reported Skin: no symptoms reported Psychiatric/Neurological: Anxiety, Depressed Physical Exam Physical Exam Vital Signs Vital Signs - First Documented 08/10/19 08/10/19 08/10/19 11:40 14:15 14:49 Temp 36.9 Pulse 130 Resp 18 B/P (MAP) 144/87 (106) Pulse Ox 94 O2 Delivery Room Air Capillary Refill : Less Than 3 Seconds Height, Weight, BMI Height: 6'2.00" Weight: 210lbs. 4.0oz. 95.270946lz; 55.00 BMI Method:Stated General Appearance: No Apparent Distress, WD/WN HEENT: TMs Normal, Normal ENT Inspection, Pharynx Normal Neck: Full Range of Motion, Normal Inspection, Non Tender, Supple Respiratory: Chest Non Tender, Lungs Clear, Normal Breath Sounds, No Accessory Muscle Use, No Respiratory Distress Cardiovascular: No Edema, No Gallop, No Murmur, Normal Peripheral Pulses, Tachycardia Gastrointestinal: Normal Bowel Sounds, Non Tender, Soft Rectal: Deferred Back: Normal Inspection Extremity: Normal Capillary Refill, No Calf Tenderness, No Pedal Edema Neurologic/Psychiatric: Alert, Oriented x3, No Motor/Sensory Deficits, Normal Mood/Affect Skin: Normal Color, Warm/Dry Lymphatic: No Adenopathy Results Results/Procedures Labs Laboratory Tests 08/10/19 11:45 Patient resulted labs reviewed. Assessment/Plan Admission Diagnosis Intentional drug overdose-recreational History of prior addictive personality Admission Status: Observation Clinical Quality Measures DVT/VTE Risk/Contraindication: Risk Factor Score Per Nursin RFS Level Per Nursing on Admit: 1=Low/No VTE PPX Copy Copies To 1: BAMBI BUSTOS KATHLEEN M MD Aug 10, 2019 16:17
--- NOTE | 2019-08-10 20:00 | NUR ---
2000: PT ASKING ABOUT OPTIONS FOR AN INPATIENT FACILITY AFTER LEAVING THE HOSPITAL. THIS RN ASKED PT WHAT TYPE OF FACILITY HE IS INTERESTED IN. PT STATES "A PLACE TO HELP FOR ALL OF THE STUFF I TAKE." PT REPORTS THAT WHAT HE TAKES DEPENDS ON "WHO HE IS HANGING OUT WITH THAT NIGHT." PT IS ALERT AND ORIENTED AT THIS TIME AND DENIES ANY SUICIDAL THOUGHTS. THIS RN PUT IN A SOCIAL SERVICE REQUEST TO HELP WITH THIS REQUEST. 2100: PT REQUESTING MEDICATION AT THIS TIME TO "KNOCK HIM OUT." PT REPORTS NO PAIN, AND THAT HE "JUST WANTS TO SLEEP." THIS RN PROVIDED EDUCATION RELATED TO HIS CORICIDIN OVERDOSE DIAGNOSIS, HIS CONDITION OF BEING UNRESPONSIVE PRIOR TO ADMISSION AND THAT WE ARE CLOSELY MONITORING HIS MENTATION WHILE HE IS IN THE HOSPITAL. WILL CONTINUE TO MONITOR.
[2019-08-11] VITALS (11 sets, daily range): BP systolic 94–122; BP diastolic 46–75
[2019-08-11 03:38] LABS: BASOPHILS % (AUTO) 1 % (0-10); EOSINOPHILS # (AUTO) 0.1 10^3/uL (0.0-0.3); EOSINOPHILS % (AUTO) 3 % (0-10); HEMATOCRIT 38 % (40-54); HEMOGLOBIN 12.8 G/DL (13.3-17.7); LYMPHOCYTES # (AUTO) 2.2 X 10^3 (1.0-4.0); LYMPHOCYTES % (AUTO) 42 % (12-44); MEAN CORPUSCULAR HEMOGLOBIN 29 PG (25-34); MEAN CORPUSCULAR HGB CONC 34 G/DL (32-36); MEAN CORPUSCULAR VOLUME 87 FL (80-99); MEAN PLATELET VOLUME 9.4 FL (7.4-10.4); MONOCYTES # (AUTO) 0.5 X 10^3 (0.0-1.0); MONOCYTES % (AUTO) 10 % (0-12); NEUTROPHILS # (AUTO) 2.4 X 10^3 (1.8-7.8); NEUTROPHILS % (AUTO) 45 % (42-75); PLATELET COUNT 166 10^3/uL (130-400); WHITE BLOOD COUNT 5.3 10^3/uL (4.3-11.0)
[2019-08-11 03:55] LABS: BUN/CREATININE RATIO 14; CALCIUM 8.3 MG/DL (8.5-10.1); CARBON DIOXIDE 24 MMOL/L (21-32); CHLORIDE 109 MMOL/L (98-107); CREATININE SERUM 0.87 MG/DL (0.60-1.30); GFR ESTIMATED > 60; GLUCOSE 133 MG/DL (70-105); MAGNESIUM 1.8 MG/DL (1.6-2.4); PHOSPHORUS 3.5 MG/DL (2.3-4.7); POTASSIUM 3.7 MMOL/L (3.6-5.0); SODIUM 141 MMOL/L (135-145)
[2019-08-11] MEDS: LACTATED RINGERS 1,000 ML IV SCH ×2 (04:05→05:34)
[2019-08-11] MEDS ORDERED: POTASSIUM CL 10MEQ/50ML IVPB 50 ML IV SCH (06:00)
[2019-08-11] MEDS ORDERED: MAGNESIUM 1 GM/100 ML IVPB 100 ML IV SCH (06:00)
[2019-08-11] MEDS ORDERED: KCL 20 MEQ TAB (K-DUR) PO SCH (06:00)
--- NOTE | 2019-08-11 10:58 | Discharge Summary ---
Discharge Summary Hospital Course Was the Problem List Reviewed?: Yes Problems/Dx: (1) Substance abuse Status: Acute (2) Intentional non-suicidal overdose involving multiple drugs Status: Acute Qualifiers: Qualified Codes: T50.902A - Poisoning by unspecified drugs, medicaments and biological substances, intentional self-harm, initial encounter Hospital Course Date of Admission: Aug 10, 2019 at 13:07 Admission Diagnosis : Family Physician/Provider: Bambi Bustos DO Date of Discharge: 08/11/19 Discharge Diagnosis: [ ] Hospital Course: [ ] Poison control was contacted from the ED, and the patient at their direction was admitted for observation for the risk of hyperthermia. The patient was tachycardic but was alert and oriented and cooperative throughout his hospit alization. He did request being admitted for inpatient addiction treatment. However this time there is not a facility available and he is instructed to begin outpatient treatment and to get on a waiting list for voluntary commitment. At the time of discharge the patient was stable and anxious to go home. He is given written phone numbers and hours for [facility] facility Labs and Pending Lab Test: Laboratory Tests 08/10/19 11:45: White Blood Count 10.2, Red Blood Count 5.06, Hemoglobin 15.2, Hematocrit 43, Mean Corpuscular Volume 84, Mean Corpuscular Hemoglobin 30, Mean Corpuscular Hemoglobin Concent 36, Red Cell Distribution Width 12.6, Platelet Count 192, Mean Platelet Volume 9.4, Neutrophils (%) (Auto) 81H, Lymphocytes (%) (Auto) 12, Monocytes (%) (Auto) 6, Eosinophils (%) (Auto) 1, Basophils (%) (Auto) 0, Neutrophils # (Auto) 8.2H, Lymphocytes # (Auto) 1.3, Monocytes # (Auto) 0.6, Eosinophils # (Auto) 0.1, Basophils # (Auto) 0.0, Sodium Level 135, Potassium Level 3.9, Chloride Level 103, Carbon Dioxide Level 21, Anion Gap 11, Blood Urea Nitrogen 17, Creatinine 1.14, Estimat Glomerular Filtration Rate > 60, BUN/Creatinine Ratio 15, Glucose Level 111H, Calcium Level 9.1, Corrected Calcium 8.9, Total Bilirubin 0.6, Aspartate Amino Transf (AST/SGOT) 22, Alanine Aminotransferase (ALT/SGPT) 23, Alkaline Phosphatase 48, Total Protein 7.1, Albumin 4.2, Salicylates Level < 5.0L, Acetaminophen Level < 10L, Serum Alcohol < 10 08/10/19 14:20: Urine Color YELLOW, Urine Clarity CLEAR, Urine pH 5, Urine Specific [place] 1.010L, Urine Protein NEGATIVE, Urine Glucose (UA) NEGATIVE, Urine Ketones N EGATIVE, Urine Nitrite NEGATIVE, Urine Bilirubin NEGATIVE, Urine Urobilinogen NORMAL, Urine Leukocyte Esterase NEGATIVE, Urine RBC (Auto) NEGATIVE, Urine RBC NONE, Urine WBC NONE, Urine Crystals NONE, Urine Bacteria NEGATIVE, Urine Casts NONE, Urine Mucus NEGATIVE, Urine Culture Indicated NO, Urine Opiates Screen NEGATIVE, Urine Oxycodone Screen NEGATIVE, Urine Methadone Screen NEGATIVE, Urine Propoxyphene Screen NEGATIVE, Urine Barbiturates Screen NEGATIVE, Ur Tricyclic Antidepressants Screen NEGATIVE, Urine Phencyclidine Screen NEGATIVE, Urine Amphetamines Screen NEGATIVE, Urine Methamphetamines Screen NEGATIVE, Urine Benzodiazepines Screen NEGATIVE, Urine Cocaine Screen NEGATIVE, Urine Cannabinoids Screen NEGATIVE 08/11/19 03:20: White Blood Count 5.3, Red Blood Count 4.37, Hemoglobin 12.8L, Hematocrit 38L, Mean Corpuscular Volume 87, Mean Corpuscular Hemoglobin 29, Mean Corpuscular Hemoglobin Concent 34, Red Cell Distribution Width 13.0, Platelet Count 166, Mean Platelet Volume 9.4, Neutrophils (%) (Auto) 45, Lymphocytes (%) (Auto) 42, Monocytes (%) (Auto) 10, Eosinophils (%) (Auto) 3, Basophils (%) (Auto) 1, Neutrophils # (Auto) 2.4, Lymphocytes # (Auto) 2.2, Monocytes # (Auto) 0.5, Eosinophils # (Auto) 0.1, Basophils # (Auto) 0.0 08/11/19 03:28: Sodium Level 141, Potassium Level 3.7, Chloride Level 109H, Carbon Dioxide Level 24, Anion Gap 8, Blood Urea Nitrogen 12, Creatinine 0.87, Estimat Glomerular F iltration Rate > 60, BUN/Creatinine Ratio 14, Glucose Level 133H, Calcium Level 8.3L, Phosphorus Level 3.5, Magnesium Level 1.8 Home Meds Active No Active Prescriptions or Reported Medications Assessment/Pt Instructions Overdose of stimulant medication for recreational use History of previous stimulant abuse Discharge Instructions Discharge Diet: No Restrictions Activity as Tolerated: Yes Pneumonia Vaccine Order Indica: Yes Orders & Referrals [facility] for substance abuse clinic Consultations None Discharge Physical Examination Vital Signs Vital Signs Date Time Temp Pulse Resp B/P (MAP) Pulse Ox O2 Delivery O2 Flow Rate FiO2 08/11/19 09:00 26 106/75 (85) Room Air 08/11/19 08:00 64 08/11/19 06:00 99 08/10/19 20:00 36.2 General Appearance: No Apparent Distress, WD/WN HEENT: Normal ENT Inspection Respiratory: Chest Non Tender, Lungs Clear, Normal Breath Sounds, No Accessory Muscle Use, No Respiratory Distress Cardiovascular: Regular Rate, Rhythm, No Edema, No Gallop, No Murmur, Normal Peripheral Pulses Gastrointestinal: Normal Bowel Sounds, Non Tender, Soft Extremity: Normal Capillary Refill, No Calf Tenderness Skin: Normal Color, Warm/Dry Neurologic/Psychiatric: Alert, Oriented x3, No Motor/Sensory Deficits, Normal Mood/Affect Allergies: Coded Allergies: No Known Drug Allergies (Unverified , 07/15/15) Copy Copies To 1: BAMBI BUSTOS DO Copies To 2: [facility] [place] Discharge Summary Date of Admission Aug 10, 2019 at 13:07 Date of Discharge Discharge Date: Aug 11, 2019 Discharge Time: 09:45 Admission Diagnosis Intentional drug overdose-recreational History of prior addictive actions Tachycardia secondary to medication overdose Consults/Procedures Consulations None Clinical Quality Measures DVT/VTE Risk/Contraindication: Risk Factor Score Per Nursin RFS Level Per Nursing on Admit: 1=Low/No VTE PPX ALIX OROZCO MD Aug 11, 2019 10:58
== END 2019-08-11 09:33 | disposition home or self-care (01) ==
LOC: EDUNIT# 11:39 → ER 11:40 → ICU 13:07 → UNDOADMOB 13:07 → ICU 14:40 → UNDODISOB 08-11 10:03
PROVIDERS: ADMIT Internal Medicine; ATTEND Internal Medicine
DX: T39.1X2A Poisoning by 4-Aminophenol derivatives, intentional self-harm, initial encounter (principal); T45.0X2A Poisoning by antiallergic and antiemetic drugs, intentional self-harm, initial encounter; F41.9 Anxiety disorder, unspecified; F32.9 Major depressive disorder, single episode, unspecified; Z86.59 Personal history of other mental and behavioral disorders; Z82.61 Family history of arthritis; Z82.49 Family history of ischemic heart disease and other diseases of the circulatory system; Z82.5 Family history of asthma and other chronic lower respiratory diseases
CPT/HCPCS: 36415; 80048; 80053; 80306; 80320; 80329; 81000; 83735; 84100; 85025; 93005; 96361; 96374; G0378

== ENCOUNTER 2019-08-12 11:55 | Emergency (ER) | payer OTHER ==
[~2019-08-12] VITALS: Ht 190.5 cm; Wt 90.9 kg
[2019-08-12 12:12] LABS: BASOPHILS # (AUTO) 0.1 10^3/uL (0.0-0.1); BASOPHILS % (AUTO) 1 % (0-10); EOSINOPHILS # (AUTO) 0.1 10^3/uL (0.0-0.3); EOSINOPHILS % (AUTO) 1 % (0-10); HEMATOCRIT 41 % (40-54); HEMOGLOBIN 14.5 G/DL (13.3-17.7); LYMPHOCYTES # (AUTO) 1.8 X 10^3 (1.0-4.0); LYMPHOCYTES % (AUTO) 28 % (12-44); MEAN CORPUSCULAR HEMOGLOBIN 30 PG (25-34); MEAN CORPUSCULAR HGB CONC 35 G/DL (32-36); MEAN CORPUSCULAR VOLUME 86 FL (80-99); MEAN PLATELET VOLUME 9.3 FL (7.4-10.4); MONOCYTES # (AUTO) 0.5 X 10^3 (0.0-1.0); MONOCYTES % (AUTO) 9 % (0-12); NEUTROPHILS # (AUTO) 3.9 X 10^3 (1.8-7.8); NEUTROPHILS % (AUTO) 61 % (42-75); PLATELET COUNT 191 10^3/uL (130-400); WHITE BLOOD COUNT 6.4 10^3/uL (4.3-11.0)
--- NOTE | 2019-08-12 12:12 | ED General ---
General Stated Complaint: OVERDOSE Source of Information: Patient Exam Limitations: No Limitations History of Present Illness Date Seen by Provider: Aug 12, 2019 Time Seen by Provider: 12:10 Initial Comments Patient was brought to the ER by a female friend after he told her he had overdosed on Coricidin HBP. He did this 2 days ago and was just released yes terday for the same thing, he took 2 boxes of Coricidin HBP this morning at 10 AM. He has no symptoms currently, states he is only here because his friend brought him here. He would like a rehabilitation program. He is no stranger to overdosing on Coricidin HBP, today's overdose occurred at 10 AM, and has done this several times in the past. He denies homicidal or suicidal thoughts, states this was strictly for recreational purposes. Timing/Duration: 1-2 Days Severity: Moderate Associated Systoms: Denies Symptoms Allergies and Home Medications Allergies Coded Allergies: No Known Drug Allergies (Unverified , 07/15/15) Home Medications No Active Prescriptions or Reported Meds Patient Home Medication List Home Medication List Reviewed: Yes Review of Systems Review of Systems Constitutional: see HPI EENTM: see HPI Respiratory: no symptoms reported Cardiovascular: no symptoms reported Genitourinary: no symptoms reported Musculoskeletal: no symptoms reported Skin: no symptoms reported Psychiatric/Neurological: No Symptoms Reported Hematologic/Lymphatic: No Symptoms Reported Past Htkeonp-Jgmjhc-Racfac Hx Patient Social History Type Used: Cigarettes Recent Foreign Travel: No Contact w/Someone Who Travel: No Recent Hopitalizations: No Immunizations Up To Date Tetanus Booster (TDap): Unknown PED Vaccines UTD: Yes Seasonal Allergies Seasonal Allergies: No Past Medical History Surgeries: Yes (DENTAL) Respiratory: No Currently Using CPAP: No Currently Using BIPAP: No Cardiac: No Neurological: No Reproductive Disorders: No Sexually Transmitted Disease: No HIV/AIDS: No Genitourinary: No Gastrointestinal: No Musculoskeletal: No Endocrine: No HEENT: No Loss of Vision: Denies Hearing Impairment: Denies Cancer: No Psychosocial: Yes Anxiety, Depression Integumentary: No Blood Disorders: No Adverse Reaction/Blood Tranf: No Family Medical History Arthritis 19 MOTHER (chronic back pain) Asthma Hypertension 19 FATHER Physical Exam Vital Signs Vital Signs - First Documented 08/12/19 11:59 Temp 38.1 Pulse 125 Resp 18 B/P (MAP) 116/86 (96) Pulse Ox 96 O2 Delivery Room Air Capillary Refill : Height, Weight, BMI Height: 6'2.00" Weight: 191lbs. 4.0oz. [id number]; 55.00 BMI Method:Stated General Appearance: No Apparent Distress, WD/WN, Other (alert and oriented GCS 15, conversing appropriately no agitation no diaphoresis today) Eyes: Bilateral Eye Normal Inspection, Bilateral Eye PERRL, Bilateral Eye EOMI HEENT: PERRL/EOMI, TMs Normal Neck: Full Range of Motion, Normal Inspection Respiratory: No Accessory Muscle Use, No Respiratory Distress Cardiovascular: Normal Peripheral Pulses, Tachycardia (120s narrow complex sinus no ectopy) Gastrointestinal: Non Tender, Soft Extremity: Normal Capillary Refill, Normal Inspection Neurologic/Psychiatric: Alert, Oriented x3 Skin: Normal Color, Warm/Dry Progress/Results/Core Measures Suspected Sepsis SIRS Temperature: Pulse: Respiratory Rate: Laboratory Tests 08/12/19 11:59: White Blood Count 6.4 Blood Pressure / Mean: Laboratory Tests 08/12/19 11:59: Creatinine 1.12, Platelet Count 191, Total Bilirubin 0.7 Results/Orders Lab Results Laboratory Tests Test 08/12/19 11:59 Range/Units White Blood Count 6.4 4.3-11.0 10^3/uL Red Blood Count 4.80 4.35-5.85 10^6/uL Hemoglobin 14.5 13.3-17.7 G/DL Hematocrit 41 40-54 % Mean Corpuscular Volume 86 80-99 FL Mean Corpuscular Hemoglobin 30 25-34 PG Mean Corpuscular Hemoglobin Concent 35 32-36 G/DL Red Cell Distribution Width 13.0 10.0-14.5 % Platelet Count 191 130-400 10^3/uL Mean Platelet Volume 9.3 7.4-10.4 FL Neutrophils (%) (Auto) 61 42-75 % Lymphocytes (%) (Auto) 28 12-44 % Monocytes (%) (Auto) 9 0-12 % Eosinophils (%) (Auto) 1 0-10 % Basophils (%) (Auto) 1 0-10 % Neutrophils # (Auto) 3.9 1.8-7.8 X 10^3 Lymphocytes # (Auto) 1.8 1.0-4.0 X 10^3 Monocytes # (Auto) 0.5 0.0-1.0 X 10^3 Eosinophils # (Auto) 0.1 0.0-0.3 10^3/uL Basophils # (Auto) 0.1 0.0-0.1 10^3/uL Sodium Level 140 135-145 MMOL/L Potassium Level 3.7 3.6-5.0 MMOL/L Chloride Level 107 98-107 MMOL/L Carbon Dioxide Level 23 21-32 MMOL/L Anion Gap 10 5-14 MMOL/L Blood Urea Nitrogen 6 L 7-18 MG/DL Creatinine 1.12 0.60-1.30 MG/DL Estimat Glomerular Filtration Rate > 60 BUN/Creatinine Ratio 5 Glucose Level 112 H 70-105 MG/DL Calcium Level 8.6 8.5-10.1 MG/DL Corrected Calcium 8.4 L 8.5-10.1 MG/DL Total Bilirubin 0.7 0.1-1.0 MG/DL Aspartate Amino Transf (AST/SGOT) 42 H 5-34 U/L Alanine Aminotransferase (ALT/SGPT) 48 0-55 U/L Alkaline Phosphatase 65 40-136 U/L Total Protein 7.1 6.4-8.2 GM/DL Albumin 4.2 3.2-4.5 GM/DL Salicylates Level < 5.0 L 5.0-20.0 MG/DL Acetaminophen Level < 10 L 10-30 UG/ML Serum Alcohol 28 H <10 MG/DL My Orders Orders - SANTIAGO CAM APRN Cbc With Automated Diff (08/12/19 12:05) Comprehensive Metabolic Panel (08/12/19 12:05) Salicylate (08/12/19 12:05) Acetaminophen (08/12/19 12:05) Alcohol (08/12/19 12:05) Ekg Tracing (08/12/19 12:05) Ua Culture If Indicated (08/12/19 12:05) Drug Screen Stat (Urine) (08/12/19 12:05) Ns Iv 1000 Ml (Sodium Chloride 0.9%) (08/12/19 12:30) Vital Signs/I&O 08/12/19 11:59 Temp 38.1 Pulse 125 Resp 18 B/P (MAP) 116/86 (96) Pulse Ox 96 O2 Delivery Room Air Capillary Refill : Departure Communication (Admissions) 1236-patient states that he is eating. He remains calm, alert and oriented. He is aware of the risks of going home before laboratory evaluation is complete, and before observation timeframe is complete. He would like information for Dr. Rodriguez and the addiction treatment Center/substance abuse program at [facility]. I provided him with that material, he signed out AGAINST MEDICAL ADVICE. Impression Primary Impression: Substance abuse Disposition: 07 AGAINST MEDICAL ADVICE Condition: Against Medical Advice Departure-Patient Inst. Referrals: GERARDO GILBERT DO (PCP/Family) Primary Care Physician Scripts No Active Prescriptions or Reported Meds SANTIAGO CAM APRN Aug 12, 2019 12:12
[2019-08-12 12:27] LABS: ALANINE AMINOTRANSFERASE 48 U/L (0-55); ALBUMIN 4.2 GM/DL (3.2-4.5); ALKALINE PHOSPHATASE 65 U/L (40-136); BILIRUBIN,TOTAL 0.7 MG/DL (0.1-1.0); BUN/CREATININE RATIO 5; CALCIUM 8.6 MG/DL (8.5-10.1); CARBON DIOXIDE 23 MMOL/L (21-32); CHLORIDE 107 MMOL/L (98-107); CREATININE SERUM 1.12 MG/DL (0.60-1.30); GFR ESTIMATED > 60; GLUCOSE 112 MG/DL (70-105); POTASSIUM 3.7 MMOL/L (3.6-5.0); SALICYLATE < 5.0 MG/DL (5.0-20.0); SODIUM 140 MMOL/L (135-145); TOTAL PROTEIN 7.1 GM/DL (6.4-8.2)
--- NOTE | 2019-08-12 12:29 | NUR ---
Patient left against medical advice.
[2019-08-12] MEDS ORDERED: NS IV 1000 ML 1,000 ML IV SCH (12:30)
[2019-08-12 12:33] LABS: ACETAMINOPHEN < 10 UG/ML (10-30)
[2019-08-12 13:27] VITALS: BP 116/86
== END 2019-08-12 12:28 | disposition left against medical advice (07) ==
LOC: EDUNIT# 11:55 → ER 11:56
DX: F19.19 Other psychoactive substance abuse with unspecified psychoactive substance-induced disorder (principal); F41.9 Anxiety disorder, unspecified; F32.9 Major depressive disorder, single episode, unspecified; Z82.49 Family history of ischemic heart disease and other diseases of the circulatory system
CPT/HCPCS: 36415; 80053; 80320; 80329; 85025

== ENCOUNTER 2019-08-13 13:50 | Emergency (ER) | payer OTHER ==
[~2019-08-13] VITALS: Ht 187 cm; Wt 90.0 kg
[2019-08-13] MEDS: LORazepam INJ 2 MG/ML (ATIVAN) VIAL ONE (13:58)
[2019-08-13] MEDS: NS IV 1000 ML 1,000 ML ONE (13:59)
[2019-08-13] MEDS ORDERED: NS IV 1000 ML 1,000 ML IV SCH (14:00)
[2019-08-13] MEDS ORDERED: LORazepam INJ 2 MG/ML (ATIVAN) VIAL IVP ONE ×4 (14:00→19:45)
--- NOTE | 2019-08-13 14:01 | ED General ---
General Chief Complaint: Altered Mental Status Stated Complaint: ALTERED MENTAL STATUS Source of Information: Patient Exam Limitations: No Limitations History of Present Illness Date Seen by Provider: Aug 13, 2019 Time Seen by Provider: 13:58 Initial Comments To ER with reports of altered mental status. He apparently presented to a local hotel and sat down on the floor speaking gibberish, diaphoretic. Police were called who then summoned EMS. Upon EMS arrival blood sugar was found to be 82, patient was diaphoretic, making strange statements like "treat the lady's right", a bit hyperactive. Temperature found to be 101. Police Ran his social security number, identified him as John [place] with a [place] Patient admitted to police methamphetamine use apparently, however he's been here several times in the past week after ingestion of excessive amounts of Coricidin HBP with chlorpheniramine and dextromethorphan. He's been hyperpyrexic on arrival with diaphoresis and short-lived confusion. The past 2 days he has taken 2 boxes full of Coricidin HBP. On each of the previous visits he adamantly denies any attempt or thought of self-harm or homicidality. States that he is only doing this for recreational purposes. Timing/Duration: 1-2 Days Severity: Moderate Allergies and Home Medications Allergies Coded Allergies: No Known Drug Allergies (Unverified , 07/15/15) Home Medications No Active Prescriptions or Reported Meds Patient Home Medication List Home Medication List Reviewed: Yes Review of Systems Review of Systems Constitutional: see HPI EENTM: see HPI Respiratory: no symptoms reported Cardiovascular: no symptoms reported Genitourinary: no symptoms reported Musculoskeletal: no symptoms reported Psychiatric/Neurological: No Symptoms Reported Hematologic/Lymphatic: No Symptoms Reported Immunological/Allergic: no symptoms reported Past Hfedjqk-Ruqraw-Oousck Hx Patient Social History Alcohol Beverage of Choice: Beer Type Used: Cigarettes Recent Hopitalizations: No Immunizations Up To Date Tetanus Booster (TDap): Unknown PED Vaccines UTD: Yes Seasonal Allergies Seasonal Allergies: No Past Medical History Surgeries: Yes (DENTAL) Respiratory: No Currently Using CPAP: No Currently Using BIPAP: No Cardiac: No Neurological: No Reproductive Disorders: No Sexually Transmitted Disease: No HIV/AIDS: No Genitourinary: No Gastrointestinal: No Musculoskeletal: No Endocrine: No HEENT: No Loss of Vision: Denies Hearing Impairment: Denies Cancer: No Psychosocial: Yes Anxiety, Depression Integumentary: No Blood Disorders: No Adverse Reaction/Blood Tranf: No Family Medical History Arthritis 19 MOTHER (chronic back pain) Asthma Hypertension 19 FATHER Physical Exam Vital Signs Vital Signs - First Documented 08/13/19 14:01 Temp 38.4 Pulse 134 Resp 14 B/P (MAP) 139/91 (107) Pulse Ox 92 O2 Delivery Room Air Capillary Refill : Height, Weight, BMI Height: 6'2.00" Weight: 191lbs. 4.0oz. 86.464780bo; 25.00 BMI Method:Stated General Appearance: No Apparent Distress, WD/WN, Anxious (alert, wide eyed, looking around the room, hypervigilant, restless with tremors. Heart rate 138, respiratory rate 20, oxygen 95% on room air. Pupils are equal, sluggish, about 5 or 6 mm bilateral. He is diaphoretic. He'll answer yes or no to some questions but otherwise doesn't speak.) Eyes: Bilateral Eye Normal Inspection, Bilateral Eye PERRL, Bilateral Eye EOMI HEENT: PERRL/EOMI, TMs Normal Neck: Full Range of Motion, Normal Inspection Respiratory: No Accessory Muscle Use, No Respiratory Distress Cardiovascular: Normal Peripheral Pulses, Tachycardia Gastrointestinal: Normal Bowel Sounds, Non Tender, Soft Neurologic/Psychiatric: Alert Skin: Normal Color, Diaphoresis Progress/Results/Core Measures Suspected Sepsis SIRS Temperature: Pulse: Respiratory Rate: Laboratory Tests 08/13/19 13:55: White Blood Count 9.8 Blood Pressure / Mean: Laboratory Tests 08/13/19 13:55: Creatinine 1.08, Platelet Count 248, Total Bilirubin 0.9 Results/Orders Lab Results Laboratory Tests Test 08/13/19 13:35 08/13/19 13:45 08/13/19 13:55 08/13/19 15:00 Range/Units Salicylates Level < 5.0 L 5.0-20.0 MG/DL Acetaminophen Level < 10 L 10-30 UG/ML Total Creatine Kinase 356 H 30-200 U/L White Blood Count 9.8 4.3-11.0 10^3/uL Red Blood Count 4.86 4.35-5.85 10^6/uL Hemoglobin 14.6 13.3-17.7 G/DL Hematocrit 42 40-54 % Mean Corpuscular Volume 86 80-99 FL Mean Corpuscular Hemoglobin 30 25-34 PG Mean Corpuscular Hemoglobin Concent 35 32-36 G/DL Red Cell Distribution Width 12.9 10.0-14.5 % Platelet Count 248 130-400 10^3/uL Mean Platelet Volume 9.0 7.4-10.4 FL Neutrophils (%) (Auto) 66 42-75 % Lymphocytes (%) (Auto) 25 12-44 % Monocytes (%) (Auto) 8 0-12 % Eosinophils (%) (Auto) 1 0-10 % Basophils (%) (Auto) 0 0-10 % Neutrophils # (Auto) 6.5 1.8-7.8 X 10^3 Lymphocytes # (Auto) 2.4 1.0-4.0 X 10^3 Monocytes # (Auto) 0.7 0.0-1.0 X 10^3 Eosinophils # (Auto) 0.1 0.0-0.3 10^3/uL Basophils # (Auto) 0.0 0.0-0.1 10^3/uL Sodium Level 139 135-145 MMOL/L Potassium Level 3.5 L 3.6-5.0 MMOL/L Chloride Level 102 98-107 MMOL/L Carbon Dioxide Level 28 21-32 MMOL/L Anion Gap 9 5-14 MMOL/L Blood Urea Nitrogen 9 7-18 MG/DL Creatinine 1.08 0.60-1.30 MG/DL Estimat Glomerular Filtration Rate > 60 BUN/Creatinine Ratio 8 Glucose Level 80 70-105 MG/DL Calcium Level 9.2 8.5-10.1 MG/DL Corrected Calcium 8.9 8.5-10.1 MG/DL Total Bilirubin 0.9 0.1-1.0 MG/DL Aspartate Amino Transf (AST/SGOT) 35 H 5-34 U/L Alanine Aminotransferase (ALT/SGPT) 41 0-55 U/L Alkaline Phosphatase 70 40-136 U/L Total Protein 7.1 6.4-8.2 GM/DL Albumin 4.4 3.2-4.5 GM/DL Serum Alcohol < 10 <10 MG/DL Urine Color YELLOW Urine Clarity CLEAR Urine pH 6 5-9 Urine Specific [place] 1.025 H 1.016-1.022 Urine Protein 1+ H NEGATIVE Urine Glucose (UA) NEGATIVE NEGATIVE Urine Ketones NEGATIVE NEGATIVE Urine Nitrite NEGATIVE NEGATIVE Urine Bilirubin NEGATIVE NEGATIVE Urine Urobilinogen 1 NORMAL MG/DL Urine Leukocyte Esterase 1+ H NEGATIVE Urine RBC (Auto) NEGATIVE NEGATIVE Urine RBC NONE /HPF Urine WBC 0-2 /HPF Urine Squamous Epithelial Cells RARE /HPF Urine Renal Epithelial Cells 5-10 /HPF Urine Crystals NONE /LPF Urine Bacteria TRACE /HPF Urine Casts PRESENT /LPF Urine Hyaline Casts 2-5 H /LPF Urine Mucus SMALL H /LPF Urine Culture Indicated NO Urine Opiates Screen NEGATIVE NEGATIVE Urine Oxycodone Screen NEGATIVE NEGATIVE Urine Methadone Screen NEGATIVE NEGATIVE Urine Propoxyphene Screen NEGATIVE NEGATIVE Urine Barbiturates Screen NEGATIVE NEGATIVE Ur Tricyclic Antidepressants Screen NEGATIVE NEGATIVE Urine Phencyclidine Screen NEGATIVE NEGATIVE Urine Amphetamines Screen NEGATIVE NEGATIVE Urine Methamphetamines Screen NEGATIVE NEGATIVE Urine Benzodiazepines Screen POSITIVE H NEGATIVE Urine Cocaine Screen NEGATIVE NEGATIVE Urine Cannabinoids Screen NEGATIVE NEGATIVE My Orders Orders - SANTIAGO CAM APRN Cbc With Automated Diff (08/13/19 13:56) Comprehensive Metabolic Panel (08/13/19 13:56) Ua Culture If Indicated (08/13/19 13:56) Drug Screen Stat (Urine) (08/13/19 13:56) Alcohol (08/13/19 13:56) Ekg Tracing (08/13/19 13:56) Ns Iv 1000 Ml (Sodium Chloride 0.9%) (08/13/19 14:00) Lorazepam Injection (Ativan Injection) (08/13/19 14:00) Lorazepam Injection (Ativan Injection) (08/13/19 14:30) Creatine Kinase (08/13/19 14:20) Lorazepam Injection (Ativan Injection) (08/13/19 14:45) Acetaminophen (08/13/19 15:24) Salicylate (08/13/19 15:24) Medications Given in ED Current Medications Medications Dose Ordered Sig/Cornelia Route Start Time Stop Time Status Last Admin Dose Admin Lorazepam 2 mg ONCE ONCE IVP 08/13/19 14:00 08/13/19 14:01 DC 08/13/19 14:19 2 MG Lorazepam 2 mg ONCE ONCE IVP 08/13/19 14:45 08/13/19 14:46 DC 08/13/19 14:48 2 MG Lorazepam 2 mg STK-MED ONCE .ROUTE 08/13/19 13:47 08/13/19 13:56 DC 08/13/19 13:58 2 MG Vital Signs/I&O 08/13/19 14:01 Temp 38.4 Pulse 134 Resp 14 B/P (MAP) 139/91 (107) Pulse Ox 92 O2 Delivery Room Air Capillary Refill : Departure Communication (Admissions) With Dr. Ayala, hospitalist from [facility] accepts the patient to ICU. He has signs and symptoms consistent with an anticholinergic toxidrome including hypervigilance, delirium with mumbling speech, mydriasis tachycardia hyperthermi a. This would be from the chlorpheniramine in the Coricidin HBP but I suspect he has again taken. The dextromethorphan component contributes to mydriasis diaphoresis tachycardia and his agitated delirium as well. We initially gave 2 mg of lorazepam without improvement and his restlessness. IV fluids are going, after 10 minutes of no improvement after the Ativan another 2 mg were ordered. We will work on the hyperthermia with ablative cooling as soon as he is able to sit still. Impression Primary Impression: Anticholinergic syndrome Qualified Codes: T44.3X4A - Poisoning by other parasympatholytics [anticholinergics and antimuscarinics] and spasmolytics, undetermined, initial encounter Additional Impression: Dextromethorphan overdose Qualified Codes: T48.3X4A - Poisoning by antitussives, undetermined, initial encounter Disposition: XF [facility] HOSP Condition: Stable Departure-Patient Inst. Referrals: GERARDO GILBERT DO (PCP/Family) Primary Care Physician Scripts No Active Prescriptions or Reported Meds SANTIAGO CAM APRN Aug 13, 2019 14:01
[2019-08-13 14:04] LABS: BASOPHILS % (AUTO) 0 % (0-10); EOSINOPHILS # (AUTO) 0.1 10^3/uL (0.0-0.3); EOSINOPHILS % (AUTO) 1 % (0-10); HEMATOCRIT 42 % (40-54); HEMOGLOBIN 14.6 G/DL (13.3-17.7); LYMPHOCYTES # (AUTO) 2.4 X 10^3 (1.0-4.0); LYMPHOCYTES % (AUTO) 25 % (12-44); MEAN CORPUSCULAR HEMOGLOBIN 30 PG (25-34); MEAN CORPUSCULAR HGB CONC 35 G/DL (32-36); MEAN CORPUSCULAR VOLUME 86 FL (80-99); MONOCYTES # (AUTO) 0.7 X 10^3 (0.0-1.0); MONOCYTES % (AUTO) 8 % (0-12); NEUTROPHILS # (AUTO) 6.5 X 10^3 (1.8-7.8); NEUTROPHILS % (AUTO) 66 % (42-75); PLATELET COUNT 248 10^3/uL (130-400); RED CELL DISTRIBUTION WIDTH 12.9 % (10.0-14.5); WHITE BLOOD COUNT 9.8 10^3/uL (4.3-11.0)
--- NOTE | 2019-08-13 14:17 | NUR ---
FAN PLACED ON STOOL AT THE FOOT OF BED.
[2019-08-13 14:33] LABS: ALANINE AMINOTRANSFERASE 41 U/L (0-55); ALBUMIN 4.4 GM/DL (3.2-4.5); ALKALINE PHOSPHATASE 70 U/L (40-136); BILIRUBIN,TOTAL 0.9 MG/DL (0.1-1.0); BUN/CREATININE RATIO 8; CALCIUM 9.2 MG/DL (8.5-10.1); CARBON DIOXIDE 28 MMOL/L (21-32); CHLORIDE 102 MMOL/L (98-107); CREATININE SERUM 1.08 MG/DL (0.60-1.30); GFR ESTIMATED > 60; GLUCOSE 80 MG/DL (70-105); POTASSIUM 3.5 MMOL/L (3.6-5.0); SODIUM 139 MMOL/L (135-145); TOTAL PROTEIN 7.1 GM/DL (6.4-8.2)
--- NOTE | 2019-08-13 14:51 | NUR ---
PT RESTING IN BED. PT REMAINS CONTINUES TO HAVE JERKY MOVEMENTS AND MOVES AROUND IN BED. PT HAS NOT TRIED TO GET OUT OF THE BED.
[2019-08-13 15:05] LABS: BILIRUBIN,URINE NEGATIVE (NEGATIVE); CLARITY,URINE CLEAR; COLOR,URINE YELLOW; GLUCOSE, URINE (UA) NEGATIVE (NEGATIVE); KETONES,URINE NEGATIVE (NEGATIVE); LEUKOCYTE ESTERASE ,URINE 1+ (NEGATIVE); NITRITE,URINE NEGATIVE (NEGATIVE); PH,URINE 6 (5-9); PROTEIN,URINE 1+ (NEGATIVE); UROBILINOGEN,URINE 1 MG/DL (NORMAL)
[2019-08-13 15:13] LABS: BACTERIA,URINE TRACE /HPF; WBC,URINE 0-2 /HPF
[2019-08-13 15:14] LABS: SQUAMOUS EPITHELIAL CELL,UR RARE /HPF
[2019-08-13 15:25] LABS: AMPHETAMINE SCREEN, URINE NEGATIVE (NEGATIVE); BARBITURATE SCREEN URINE NEGATIVE (NEGATIVE); BENZODIAZEPINES SCREEN URINE POSITIVE (NEGATIVE); CANNABINOID SCREEN, URINE NEGATIVE (NEGATIVE); COCAINE SCREEN URINE NEGATIVE (NEGATIVE); METHADONE STAT NEGATIVE (NEGATIVE); METHAMPHETAMINE SCREEN URINE S NEGATIVE (NEGATIVE); OPIATE SCREEN URINE NEGATIVE (NEGATIVE); OXYCODONE STAT NEGATIVE (NEGATIVE); PROPOXYPHENE STAT NEGATIVE (NEGATIVE); TRICYCLIC ANTIDEPRESSANTS SCRE NEGATIVE (NEGATIVE)
[2019-08-13 15:40] LABS: SALICYLATE < 5.0 MG/DL (5.0-20.0)
[2019-08-13 15:44] LABS: ACETAMINOPHEN < 10 UG/ML (10-30)
--- NOTE | 2019-08-13 15:48 | NUR ---
PT LAYING IN BED. PT AWAKE AND CONTINUALLY LOOKING AROUND.
[2019-08-13] MEDS ORDERED: NS IV 1000 ML 1,000 ML ONE (16:14)
--- NOTE | 2019-08-13 16:28 | NUR ---
PT CONTINUES TO LAY IN BED. PT HAS NOT STATED A NEED WHEN ASKED.
--- NOTE | 2019-08-13 17:38 | NUR ---
PT RESTING IN BED. PT ASKED IF THERE WAS ANYTHING HE NEEDED AND PT DENIED ANY NEED AT THIS TIME.
[2019-08-13 21:32] VITALS: BP 134/89
== END 2019-08-13 20:38 | disposition short-term general hospital (02) ==
LOC: EDUNIT# 13:50 → ER 13:50
DX: T48.3X1A Poisoning by antitussives, accidental (unintentional), initial encounter (principal); T44.3X1A Poisoning by other parasympatholytics [anticholinergics and antimuscarinics] and spasmolytics, accidental (unintentional), initial encounter; F41.9 Anxiety disorder, unspecified; F32.9 Major depressive disorder, single episode, unspecified; Z82.49 Family history of ischemic heart disease and other diseases of the circulatory system
CPT/HCPCS: 36415; 80053; 80306; 80320; 80329; 81000; 82550; 85025; 93005; 96361; 96374; 96376

== ENCOUNTER 2019-08-29 12:47 | Emergency (ER) | payer SELFPAY ==
[~2019-08-29] VITALS: Ht 185 cm; Wt 90.0 kg
--- NOTE | 2019-08-29 13:12 | ED Psychosocial ---
General Chief Complaint: Overdose Stated Complaint: OVERDOSE Source: patient Exam Limitations: no limitations History of Present Illness Date Seen by Provider: Aug 29, 2019 Time Seen by Provider: 13:09 Initial Comments To ER with reports of taking 18 Mucinex DM 45 minutes ago at 12:15 PM. He's been trying to get into an inpatient psychiatric treatment Center/detox program, he's been seen here in the emergency room several times for recreational overdoses of Coricidin HBP. Most recently he was seen here and transferred to [facility], he states elect to go inpatient somewhere for about a month. Currently he is homeless but living with his mother. He takes no daily medications. He went somewhere this morning, he's been talking through [employer] and has a bed arranged on October 02 at [facility] treatment facility in [place] . However, he states he's impatient and wants to go now, he went to the walk-in clinic at [facility] to get "a referral" they stated they couldn't help with that so he decided the fastest way to get readmitted was to overdose. I spoke with poison control, the guaifenesin component of this Mucinex is not concerning, the dextromethorphan component totals about 6.3 mg/kg based on his weight, they would not expect any symptoms with this, if symptoms did develop treatment will be supportive, they recommend observation for 4 hours to make sure he doesn't develop symptoms. Timing/Duration: constant Severity: moderate Associated Symptoms: ingestion Allergies and Home Medications Allergies Coded Allergies: No Known Drug Allergies (Unverified , 07/15/15) Home Medications No Active Prescriptions or Reported Meds Patient Home Medication List Home Medication List Reviewed: Yes Review of Systems Constitutional: see HPI EENTM: see HPI Respiratory: no symptoms reported Cardiovascular: no symptoms reported Genitourinary: no symptoms reported Musculoskeletal: no symptoms reported Skin: no symptoms reported Psychiatric/Neurological: See HPI Past Zqzjnth-Qbhbef-Yduqxs Hx Patient Social History Alcohol Beverage of Choice: Beer Type Used: Cigarettes Recent Foreign Travel: No Contact w/Someone Who Travel: No Recent Hopitalizations: No Immunizations Up To Date Tetanus Booster (TDap): Unknown PED Vaccines UTD: Yes Seasonal Allergies Seasonal Allergies: No Past Medical History Surgeries: Yes (DENTAL) Respiratory: No Currently Using CPAP: No Currently Using BIPAP: No Cardiac: No Neurological: No Reproductive Disorders: No Sexually Transmitted Disease: No HIV/AIDS: No Genitourinary: No Gastrointestinal: No Musculoskeletal: No Endocrine: No HEENT: No Loss of Vision: Denies Hearing Impairment: Denies Cancer: No Psychosocial: Yes Anxiety, Depression Integumentary: No Blood Disorders: No Adverse Reaction/Blood Tranf: No Family Medical History Arthritis 19 MOTHER (chronic back pain) Asthma Hypertension 19 FATHER Physical Exam Vital Signs - First Documented 08/29/19 13:16 Temp 36.9 Pulse 86 Resp 21 B/P (MAP) 146/82 (103) Pulse Ox 100 Capillary Refill : Height, Weight, BMI Height: 6'2.00" Weight: 191lbs. 4.0oz. [id number]; 25.00 BMI Method:Stated General Appearance: WD/WN, no apparent distress, other (alert and oriented coherent caries on appropriate conversation and speaks appropriately, pleasant) HEENT: PERRL/EOMI, normal ENT inspection Neck: non-tender, full range of motion Respiratory: no respiratory distress, no accessory muscle use Gastrointestinal: normal bowel sounds, non tender, soft Neurologic/Psychiatric: alert, normal mood/affect, oriented x 3 Appearance/Memory: appropriate appearance, appropriate insight Behavior/Eye Contact: cooperative, good eye contact Thoughts/Hallucinations: normal thought pattern, no apparent hallucination Skin: normal color, warm/dry Progress/Results/Core Measures Results/Orders Lab Results Laboratory Tests Test 08/29/19 12:55 Range/Units White Blood Count 5.4 4.3-11.0 10^3/uL Red Blood Count 4.93 4.35-5.85 10^6/uL Hemoglobin 14.4 13.3-17.7 G/DL Hematocrit 43 40-54 % Mean Corpuscular Volume 87 80-99 FL Mean Corpuscular Hemoglobin 29 25-34 PG Mean Corpuscular Hemoglobin Concent 33 32-36 G/DL Red Cell Distribution Width 13.2 10.0-14.5 % Platelet Count 217 130-400 10^3/uL Mean Platelet Volume 9.4 7.4-10.4 FL Neutrophils (%) (Auto) 56 42-75 % Lymphocytes (%) (Auto) 32 12-44 % Monocytes (%) (Auto) 7 0-12 % Eosinophils (%) (Auto) 4 0-10 % Basophils (%) (Auto) 1 0-10 % Neutrophils # (Auto) 3.1 1.8-7.8 X 10^3 Lymphocytes # (Auto) 1.8 1.0-4.0 X 10^3 Monocytes # (Auto) 0.4 0.0-1.0 X 10^3 Eosinophils # (Auto) 0.2 0.0-0.3 10^3/uL Basophils # (Auto) 0.0 0.0-0.1 10^3/uL Urine Color YELLOW Urine Clarity CLEAR Urine pH 7 5-9 Urine Specific [place] 1.010 L 1.016-1.022 Urine Protein NEGATIVE NEGATIVE Urine Glucose (UA) NEGATIVE NEGATIVE Urine Ketones NEGATIVE NEGATIVE Urine Nitrite NEGATIVE NEGATIVE Urine Bilirubin NEGATIVE NEGATIVE Urine Urobilinogen NORMAL NORMAL MG/DL Urine Leukocyte Esterase NEGATIVE NEGATIVE Urine RBC (Auto) NEGATIVE NEGATIVE Urine RBC NONE /HPF Urine WBC NONE /HPF Urine Crystals PRESENT H /LPF Urine Amorphous Sediment LARGE ALPHONSE PHOSPHATE H /LPF Urine Bacteria TRACE /HPF Urine Casts NONE /LPF Urine Mucus NEGATIVE /LPF Urine Culture Indicated NO Sodium Level 142 135-145 MMOL/L Potassium Level 4.0 3.6-5.0 MMOL/L Chloride Level 107 98-107 MMOL/L Carbon Dioxide Level 25 21-32 MMOL/L Anion Gap 10 5-14 MMOL/L Blood Urea Nitrogen 11 7-18 MG/DL Creatinine 0.98 0.60-1.30 MG/DL Estimat Glomerular Filtration Rate > 60 BUN/Creatinine Ratio 11 Glucose Level 74 70-105 MG/DL Calcium Level 10.0 8.5-10.1 MG/DL Corrected Calcium 9.8 8.5-10.1 MG/DL Total Bilirubin 0.4 0.1-1.0 MG/DL Aspartate Amino Transf (AST/SGOT) 26 5-34 U/L Alanine Aminotransferase (ALT/SGPT) 30 0-55 U/L Alkaline Phosphatase 88 40-136 U/L Total Protein 7.5 6.4-8.2 GM/DL Albumin 4.2 3.2-4.5 GM/DL Salicylates Level < 5.0 L 5.0-20.0 MG/DL Urine Opiates Screen NEGATIVE NEGATIVE Urine Oxycodone Screen NEGATIVE NEGATIVE Urine Methadone Screen NEGATIVE NEGATIVE Urine Propoxyphene Screen NEGATIVE NEGATIVE Acetaminophen Level < 10 L 10-30 UG/ML Urine Barbiturates Screen NEGATIVE NEGATIVE Ur Tricyclic Antidepressants Screen NEGATIVE NEGATIVE Urine Phencyclidine Screen NEGATIVE NEGATIVE Urine Amphetamines Screen NEGATIVE NEGATIVE Urine Methamphetamines Screen NEGATIVE NEGATIVE Urine Benzodiazepines Screen NEGATIVE NEGATIVE Urine Cocaine Screen NEGATIVE NEGATIVE Urine Cannabinoids Screen NEGATIVE NEGATIVE Serum Alcohol < 10 <10 MG/DL My Orders Orders - SANTIAGO CAM APRN Cbc With Automated Diff (08/29/19 13:06) Comprehensive Metabolic Panel (08/29/19 13:06) Ua Culture If Indicated (08/29/19 13:06) Drug Screen Stat (Urine) (08/29/19 13:06) Alcohol (08/29/19 13:06) Salicylate (08/29/19 13:06) Acetaminophen (08/29/19 13:06) Ns Iv 1000 Ml (Sodium Chloride 0.9%) (08/29/19 13:15) Vital Signs/I&O 08/29/19 13:16 Temp 36.9 Pulse 86 Resp 21 B/P (MAP) 146/82 (103) Pulse Ox 100 Departure Communication (Admissions) Spoke with Karen from [facility] here in [place], she has secured a bed for him at [facility] residential treatment facility in [facility] September 06. Patient is very excited with this plan, agreeable to go home, assures me he is not suicidal or homicidal. He states his mother will drive him out there. Impression Primary Impression: Recreational drug use Disposition: 01 HOME, SELF-CARE Condition: Stable Departure-Patient Inst. Decision time for Depature: 15:19 Referrals: GERARDO GILBERT DO (PCP/Family) Primary Care Physician Patient Instructions: ALCOHOL AND SUBSTANCE ABUSE Add. Discharge Instructions: 1. I spoke with Karen who confirmed that there would be a bed available at [facility] in [place] on September 06. Keep in touch with her for the address and exact location of this facility. All discharge instructions reviewed with patient and/or family. Voiced understanding. Scripts No Active Prescriptions or Reported Meds SANTIAGO CAM APRN Aug 29, 2019 13:12
[2019-08-29] MEDS ORDERED: NS IV 1000 ML 1,000 ML IV SCH (13:15)
[2019-08-29 13:20] LABS: BASOPHILS % (AUTO) 1 % (0-10); EOSINOPHILS # (AUTO) 0.2 10^3/uL (0.0-0.3); EOSINOPHILS % (AUTO) 4 % (0-10); HEMATOCRIT 43 % (40-54); HEMOGLOBIN 14.4 G/DL (13.3-17.7); LYMPHOCYTES # (AUTO) 1.8 X 10^3 (1.0-4.0); LYMPHOCYTES % (AUTO) 32 % (12-44); MEAN CORPUSCULAR HEMOGLOBIN 29 PG (25-34); MEAN CORPUSCULAR HGB CONC 33 G/DL (32-36); MEAN CORPUSCULAR VOLUME 87 FL (80-99); MEAN PLATELET VOLUME 9.4 FL (7.4-10.4); MONOCYTES # (AUTO) 0.4 X 10^3 (0.0-1.0); MONOCYTES % (AUTO) 7 % (0-12); NEUTROPHILS # (AUTO) 3.1 X 10^3 (1.8-7.8); NEUTROPHILS % (AUTO) 56 % (42-75); PLATELET COUNT 217 10^3/uL (130-400); RED CELL DISTRIBUTION WIDTH 13.2 % (10.0-14.5); WHITE BLOOD COUNT 5.4 10^3/uL (4.3-11.0)
[2019-08-29 13:21] LABS: BILIRUBIN,URINE NEGATIVE (NEGATIVE); CLARITY,URINE CLEAR; COLOR,URINE YELLOW; GLUCOSE, URINE (UA) NEGATIVE (NEGATIVE); KETONES,URINE NEGATIVE (NEGATIVE); LEUKOCYTE ESTERASE ,URINE NEGATIVE (NEGATIVE); NITRITE,URINE NEGATIVE (NEGATIVE); PH,URINE 7 (5-9); PROTEIN,URINE NEGATIVE (NEGATIVE); UROBILINOGEN,URINE NORMAL (NORMAL)
[2019-08-29 13:42] LABS: ALANINE AMINOTRANSFERASE 30 U/L (0-55); ALBUMIN 4.2 GM/DL (3.2-4.5); ALKALINE PHOSPHATASE 88 U/L (40-136); AMPHETAMINE SCREEN, URINE NEGATIVE (NEGATIVE); BARBITURATE SCREEN URINE NEGATIVE (NEGATIVE); BENZODIAZEPINES SCREEN URINE NEGATIVE (NEGATIVE); BILIRUBIN,TOTAL 0.4 MG/DL (0.1-1.0); BUN/CREATININE RATIO 11; CANNABINOID SCREEN, URINE NEGATIVE (NEGATIVE); CARBON DIOXIDE 25 MMOL/L (21-32); CHLORIDE 107 MMOL/L (98-107); COCAINE SCREEN URINE NEGATIVE (NEGATIVE); CREATININE SERUM 0.98 MG/DL (0.60-1.30); GFR ESTIMATED > 60; GLUCOSE 74 MG/DL (70-105); METHADONE STAT NEGATIVE (NEGATIVE); METHAMPHETAMINE SCREEN URINE S NEGATIVE (NEGATIVE); OPIATE SCREEN URINE NEGATIVE (NEGATIVE); OXYCODONE STAT NEGATIVE (NEGATIVE); PROPOXYPHENE STAT NEGATIVE (NEGATIVE); SALICYLATE < 5.0 MG/DL (5.0-20.0); SODIUM 142 MMOL/L (135-145); TOTAL PROTEIN 7.5 GM/DL (6.4-8.2); TRICYCLIC ANTIDEPRESSANTS SCRE NEGATIVE (NEGATIVE)
[2019-08-29 13:44] LABS: BACTERIA,URINE TRACE /HPF
[2019-08-29 13:45] LABS: ACETAMINOPHEN < 10 UG/ML (10-30); AMORPHOUS SEDIMENT,UR LARGE AMOR PHOSPHATE /LPF
[2019-08-29 15:39] VITALS: BP 146/82
== END 2019-08-29 15:41 | disposition home or self-care (01) ==
LOC: EDUNIT# 12:47 → ER 12:48
DX: F19.99 Other psychoactive substance use, unspecified with unspecified psychoactive substance-induced disorder (principal); F41.9 Anxiety disorder, unspecified; F32.9 Major depressive disorder, single episode, unspecified; Z82.49 Family history of ischemic heart disease and other diseases of the circulatory system
CPT/HCPCS: 36415; 80053; 80306; 80320; 80329; 81000; 85025